=== PATIENT | male | born 1960 | race African-American/Black ===

== ENCOUNTER 2019-09-22 13:55 | Inpatient (IN) ==
[2019-09-22 14:27] LABS: Bilirubin,Urine Small (Negative); Blood,Urine Negative (Negative); Clarity,Urine Clear (Clear); Color,Urine Dark Yellow (Yellow); Glucose,Urine (UA) Normal (Normal); Ketones,Urine Trace mg/dL (Negative); Leukocyte Esterase,Urine Negative (Negative); Nitrite,Urine Negative (Negative); PH,Urine 6.5 pH Units (5.0-8.0); Protein,Urine Trace mg/dL (Neg-Trace); Specific Gravity,Urine 1.018 (1.010-1.025)
[2019-09-22 14:48] LABS: Amphetamine Screen,Urine Negative ng/mL (Cutoff=1000); Barbiturate Screen,Urine Negative ng/mL (Cutoff=200); Benzodiazepines Screen,Urine Negative ng/mL (Cutoff=200); Cannabinoid Screen,Urine Negative ng/mL (Cutoff = 50); Cocaine Screen,Urine Negative ng/mL (Cutoff= 300); Opiate Screen,Urine Negative ng/mL (Cutoff=300); Phencyclidine Screen,Urine Negative ng/mL (Cutoff=25)
[2019-09-22 14:50] LABS: Basophils % 0.1 %; Eosinophils % 0.3 %; Hemoglobin 13.7 g/dL (12.9-16.9); Immature Granulocytes % 0.7 % (0-4); Lymphocytes # 0.8 K/mcL (0.6-4.6); Lymphocytes % 5.6 %; Mean Corpuscular HGB Conc 32.6 g/dL (31.6-35.5); Mean Corpuscular Hemoglobin 30.6 pg (28.0-33.3); Mean Corpuscular Volume 93.8 fL (83.0-100.0); Mean Platelet Volume 10.6 fL (9.4-12.4); Monocytes # 1.6 K/mcL (0.0-1.3); Monocytes % 10.7 %; Neutrophils # 12.1 K/mcL (1.6-8.9); Nucleated Red Blood Cells 0.1 /100 WBC (0); Platelet Count 157 K/mcL (140-400); Red Blood Count 4.48 M/mcL (4.19-5.50); Red Cell Distribution Width 13.1 % (11.5-14.5); Segmented Neutrophils % 82.6 %; White Blood Count 14.6 K/mcL (4.3-11.1)
[2019-09-22 15:04] LABS: INR 1.5; Prothrombin Time 17.5 Seconds (9.4-12.1)
[2019-09-22 15:06] LABS: Activated Partial Thrombo Time 33.8 Seconds (26.0-36.0)
[2019-09-22 15:13] LABS: Alanine Aminotransferase 58 Units/L (7-52); Albumin 3.4 g/dL (3.5-5.7); Albumin/Globulin Ratio 0.7 (1.1-2.2); Alkaline Phosphatase 68 Units/L (34-104); Aspartate Amino Transferase 59 Units/L (13-39); BUN/Creatinine Ratio 13 (6-26); Bilirubin,Direct 0.2 mg/dL (0.0-0.2); Bilirubin,Indirect 0.3 mg/dL (0.0-1.0); Bilirubin,Total 0.5 mg/dL (0.3-1.0); Blood Urea Nitrogen 18 mg/dL (6-20); Calcium 9.3 mg/dL (8.6-10.3); Carbon Dioxide 30 mEq/L (23-29); Chloride 111 mEq/L (98-107); Globulin 4.6 g/dL (2.4-3.5); Glucose 125 mg/dL (70-105); Magnesium 2.1 mg/dL (1.6-2.6); Osmolality,Calculated 315 (280-300); Platelet Estimate Slight Decrease (Normal); Sodium 151 mEq/L (136-145); eGFR For African Americans > 60 (> 60); eGFR For Non-African Americans 50 (> 60)
[2019-09-22 15:15] LABS: Troponin I < 0.03 ng/mL (< 0.04)
[2019-09-22] MEDS ORDERED: 0.9 % Sodium Chloride 1,000 ML IVC ONE (15:43)
[2019-09-22 17:11] LABS: ABG Base Excess 4 mEq/L (-2 to 3); ABG HCO3 30 mEq/L (21-27); ABG Oxygen Saturation 87 % (95-98); ABG PCO2 50 mmHg (35-45); ABG PH 7.39 pH Units (7.32-7.45); ABG PO2 55 mmHg (85-104); ABG TCO2 32 mEq/L (20-26)
[2019-09-22] MEDS ORDERED: *HR* Metoprolol 5 MG/5 ML VIAL IVP PRN (17:37)
[2019-09-22] MEDS ORDERED: Naloxone 0.4 MG/ML INJ IVP PRN (17:54)
[2019-09-22] MEDS: Potassium Chloride 20 MEQ, Lidocaine 1% 2 ML in 0.9 % Sodium Chloride 250 ML IVPB ONE ×2 (20:45→21:48)
[2019-09-22] MEDS: *HR* Heparin 5,000 UNIT/ML VIAL SQ SCH (20:53)
[2019-09-22 21:33] LABS: BUN/Creatinine Ratio 14 (6-26); Blood Urea Nitrogen 17 mg/dL (6-20); Calcium 8.8 mg/dL (8.6-10.3); Carbon Dioxide 28 mEq/L (23-29); Chloride 114 mEq/L (98-107); Glucose 102 mg/dL (70-105); Osmolality,Calculated 318 (280-300); Potassium 3.5 mEq/L (3.5-5.1); Sodium 153 mEq/L (136-145); eGFR For African Americans > 60 (> 60); eGFR For Non-African Americans > 60 (> 60)
[2019-09-22] MEDS: Valproic Acid INJ 500 MG in 0.9 % Sodium Chloride 100 ML IVPB SCH (21:52)
[2019-09-23 01:15] LABS: Basophils % 0.2 %; Eosinophils # 0.1 K/mcL (0.0-0.6); Eosinophils % 0.8 %; Hematocrit 39.2 % (37.5-50.1); Hemoglobin 12.9 g/dL (12.9-16.9); Immature Granulocytes % 0.9 % (0-4); Lymphocytes % 8.7 %; Mean Corpuscular HGB Conc 32.9 g/dL (31.6-35.5); Mean Corpuscular Hemoglobin 30.6 pg (28.0-33.3); Mean Corpuscular Volume 93.1 fL (83.0-100.0); Mean Platelet Volume 10.5 fL (9.4-12.4); Monocytes # 1.2 K/mcL (0.0-1.3); Monocytes % 10.5 %; Neutrophils # 9.1 K/mcL (1.6-8.9); Platelet Count 157 K/mcL (140-400); Red Blood Count 4.21 M/mcL (4.19-5.50); Red Cell Distribution Width 13.1 % (11.5-14.5); Segmented Neutrophils % 78.9 %; White Blood Count 11.5 K/mcL (4.3-11.1)
[2019-09-23 01:34] LABS: BUN/Creatinine Ratio 14 (6-26); Blood Urea Nitrogen 15 mg/dL (6-20); Calcium 8.6 mg/dL (8.6-10.3); Carbon Dioxide 26 mEq/L (23-29); Chloride 117 mEq/L (98-107); Glucose 97 mg/dL (70-105); Osmolality,Calculated 311 (280-300); Potassium 3.2 mEq/L (3.5-5.1); Sodium 150 mEq/L (136-145); eGFR For African Americans > 60 (> 60); eGFR For Non-African Americans > 60 (> 60)
[2019-09-23] MEDS: D5% in Water 1,000 ML IVC SCH ×3 (01:34→22:29)
[2019-09-23 02:00] LABS: Platelet Estimate Normal (Normal)
[2019-09-23 02:41] LABS: Adenovirus Not Detected (Not Detect); Bordetella Pertussis Not Detected (Not Detect); Chlamydophila pneumoniae Not Detected (Not Detect); Coronavirus 229E Not Detected (Not Detect); Coronavirus HKU1 Not Detected (Not Detect); Coronavirus NL63 Not Detected (Not Detect); Coronavirus OC43 Not Detected (Not Detect); Human Metapneumovirus Not Detected (Not Detect); Human Rhinovirus/Enterovirus Not Detected (Not Detect); Influenza A Subtype 2009 H1 Not Detected (Not Detect); Influenza A Untypeable Not Detected (Not Detect); Influenza B Not Detected (Not Detect); Mycoplasma pneumoniae Not Detected (Not Detect); Parainfluenza Virus 1 Not Detected (Not Detect); Parainfluenza Virus 2 Not Detected (Not Detect); Parainfluenza Virus 3 Not Detected (Not Detect); Parainfluenza Virus 4 Not Detected (Not Detect); Respiratory Syncytial Virus Not Detected (Not Detect)
[2019-09-23] MEDS ORDERED: Potassium Chloride 20 MEQ, Lidocaine 1% 2 ML in 0.9 % Sodium Chloride 250 ML IVPB ONE (06:40)
[2019-09-23] MEDS: *HR* Heparin 5,000 UNIT/ML VIAL SQ SCH ×3 (06:43→22:23)
[2019-09-23] MEDS: Valproic Acid INJ 500 MG in 0.9 % Sodium Chloride 100 ML IVPB SCH ×2 (06:43→17:53)
[2019-09-23 09:27] LABS: BUN/Creatinine Ratio 13 (6-26); Blood Urea Nitrogen 13 mg/dL (6-20); Calcium 8.7 mg/dL (8.6-10.3); Carbon Dioxide 28 mEq/L (23-29); Chloride 115 mEq/L (98-107); Glucose 111 mg/dL (70-105); Osmolality,Calculated 311 (280-300); Potassium 3.1 mEq/L (3.5-5.1); Sodium 150 mEq/L (136-145); eGFR For African Americans > 60 (> 60); eGFR For Non-African Americans > 60 (> 60)
[2019-09-23 09:49] LABS: Enterococcus by PCR Not Detected (Not Detect); Staphylococcus aureus by PCR DETECTED (Not Detect); mecA Methicillin-Resist Gene Not Detected (Not Detect)
[2019-09-23 09:50] LABS: Acinetobacter baumannii by PCR Not Detected (Not Detect); Candida albicans by PCR Not Detected (Not Detect); Candida glabrata by PCR Not Detected (Not Detect); Candida krusei by PCR Not Detected (Not Detect); Candida parapsilosis by PCR Not Detected (Not Detect); Candida tropicalis by PCR Not Detected (Not Detect); Enterobacter cloacae Cmplx PCR Not Detected (Not Detect); Enterobacteriaceae by PCR Not Detected (Not Detect); Escherichia coli by PCR Not Detected (Not Detect); Klebsiella oxytoca by PCR Not Detected (Not Detect); Klebsiella pneumoniae by PCR Not Detected (Not Detect); Proteus by PCR Not Detected (Not Detect); Pseudomonas aeruginosa by PCR Not Detected (Not Detect); Serratia marcescens by PCR Not Detected (Not Detect); Streptococcus agalactiae(B)PCR Not Detected (Not Detect); Streptococcus by PCR Not Detected (Not Detect); Streptococcus pneumoniae PCR Not Detected (Not Detect); Streptococcus pyogenes (A) PCR Not Detected (Not Detect)
[2019-09-23] MEDS: *HR* LORazepam 2 MG/ML VIAL IVP PRN ×2 (14:40→23:07)
[2019-09-23 16:29] LABS: BUN/Creatinine Ratio 14 (6-26); Blood Urea Nitrogen 14 mg/dL (6-20); Calcium 8.4 mg/dL (8.6-10.3); Carbon Dioxide 25 mEq/L (23-29); Chloride 117 mEq/L (98-107); Glucose 105 mg/dL (70-105); Osmolality,Calculated 309 (280-300); Potassium 2.9 mEq/L (3.5-5.1); Sodium 149 mEq/L (136-145); eGFR For African Americans > 60 (> 60); eGFR For Non-African Americans > 60 (> 60)
[2019-09-23] MEDS ORDERED: Potassium Chloride 40 MEQ, Lidocaine 1% 2 ML in 0.9 % Sodium Chloride 500 ML IVPB ONE (16:42)
[2019-09-23] MEDS: Latanoprost 2.5 ML BOTTLE BOTH EYES SCH (22:23)
[2019-09-23] MEDS: Dorzolamide/Timolol OPTH 10 ML BOTTLE BOTH EYES SCH (22:23)
[2019-09-24 01:36] LABS: Basophils % 0.4 %; Eosinophils # 0.2 K/mcL (0.0-0.6); Eosinophils % 2.3 %; Hematocrit 39.6 % (37.5-50.1); Immature Granulocytes % 0.9 % (0-4); Lymphocytes # 0.7 K/mcL (0.6-4.6); Mean Corpuscular HGB Conc 32.8 g/dL (31.6-35.5); Mean Corpuscular Hemoglobin 30.5 pg (28.0-33.3); Mean Platelet Volume 10.6 fL (9.4-12.4); Monocytes # 0.9 K/mcL (0.0-1.3); Monocytes % 12.7 %; Neutrophils # 5.4 K/mcL (1.6-8.9); Nucleated Red Blood Cells 0.3 /100 WBC (0); Platelet Count 166 K/mcL (140-400); Red Blood Count 4.26 M/mcL (4.19-5.50); Red Cell Distribution Width 13.2 % (11.5-14.5); Segmented Neutrophils % 73.7 %; White Blood Count 7.4 K/mcL (4.3-11.1)
[2019-09-24] MEDS: *HR* LORazepam 2 MG/ML VIAL IVP PRN ×3 (04:55→20:36)
[2019-09-24] MEDS: Valproic Acid INJ 500 MG in 0.9 % Sodium Chloride 100 ML IVPB SCH (05:10)
[2019-09-24] MEDS: *HR* Heparin 5,000 UNIT/ML VIAL SQ SCH ×3 (06:01→20:35)
[2019-09-24 08:58] LABS: BUN/Creatinine Ratio 12 (6-26); Blood Urea Nitrogen 12 mg/dL (6-20); Calcium 8.6 mg/dL (8.6-10.3); Carbon Dioxide 25 mEq/L (23-29); Chloride 117 mEq/L (98-107); Glucose 92 mg/dL (70-105); Osmolality,Calculated 311 (280-300); Potassium 3.1 mEq/L (3.5-5.1); Sodium 151 mEq/L (136-145); eGFR For African Americans > 60 (> 60); eGFR For Non-African Americans > 60 (> 60)
[2019-09-24] MEDS: Dorzolamide/Timolol OPTH 10 ML BOTTLE BOTH EYES SCH ×2 (09:15→20:19)
[2019-09-24] MEDS ORDERED: Potassium Chloride 40 MEQ, Lidocaine 1% 2 ML in 0.9 % Sodium Chloride 500 ML IVPB ONE (09:57)
[2019-09-24 10:20] LABS: Magnesium 2.1 mg/dL (1.6-2.6)
[2019-09-24] MEDS ORDERED: *HR* LORazepam 2 MG/ML VIAL IVP ONE (13:18)
[2019-09-24 14:03] LABS: Albumin 2.9 g/dL (3.5-5.7); Albumin/Globulin Ratio 0.7 (1.1-2.2); Bilirubin,Direct 0.3 mg/dL (0.0-0.2); Bilirubin,Indirect 0.2 mg/dL (0.0-1.0); Bilirubin,Total 0.5 mg/dL (0.3-1.0); Globulin 4.2 g/dL (2.4-3.5); Total Protein 7.1 g/dL (6.4-8.9)
[2019-09-24] MEDS ORDERED: D5% in Water 1,000 ML IVC SCH (14:45)
[2019-09-24] MEDS: D5% in Water 1,000 ML IVC SCH ×3 (17:40→22:00)
[2019-09-24 17:52] LABS: BUN/Creatinine Ratio 12 (6-26); Blood Urea Nitrogen 12 mg/dL (6-20); Calcium 8.4 mg/dL (8.6-10.3); Carbon Dioxide 24 mEq/L (23-29); Chloride 120 mEq/L (98-107); Glucose 84 mg/dL (70-105); Osmolality,Calculated 311 (280-300); Potassium 3.4 mEq/L (3.5-5.1); Sodium 151 mEq/L (136-145); eGFR For African Americans > 60 (> 60); eGFR For Non-African Americans > 60 (> 60)
[2019-09-24 18:25] LABS: Valproate Free 10 ug/mL (7-23); Valproate Total 39 ug/mL (50-125)
[2019-09-24] MEDS: D5 IVPB SCH (20:21)
[2019-09-24] MEDS: WATER IVPB SCH (20:21)
[2019-09-24] MEDS: VALPROIC ACID IVPB SCH (20:21)
[2019-09-24] MEDS: Latanoprost 2.5 ML BOTTLE BOTH EYES SCH (20:25)
[2019-09-24] MEDS: Lactulose Oral Soln 20 GM/30 ML UDC PO SCH (20:35)
[2019-09-25] MEDS ORDERED: Vancomycin 1,500 MG in D5% in Water 250 ML IVPB SCH (00:01)
[2019-09-25] MEDS ORDERED: Vancomycin 1,250 MG in D5% in Water 250 ML IVPB SCH (01:00)
[2019-09-25] MEDS: *HR* LORazepam 2 MG/ML VIAL IVP PRN ×2 (03:14→18:29)
[2019-09-25] MEDS: D5% in Water 1,000 ML IVC SCH ×2 (04:17→18:22)
[2019-09-25] MEDS: VALPROIC ACID IVPB SCH ×3 (06:08→19:56)
[2019-09-25] MEDS: D5 IVPB SCH ×3 (06:08→19:56)
[2019-09-25] MEDS: WATER IVPB SCH ×3 (06:08→19:56)
[2019-09-25] MEDS: *HR* Heparin 5,000 UNIT/ML VIAL SQ SCH ×3 (06:11→21:52)
[2019-09-25] MEDS ORDERED: Aminoglycoside Consult 1 EACH MC ONE (07:51)
[2019-09-25 07:57] LABS: BUN/Creatinine Ratio 12 (6-26); Blood Urea Nitrogen 10 mg/dL (6-20); Calcium 8.4 mg/dL (8.6-10.3); Carbon Dioxide 21 mEq/L (23-29); Chloride 113 mEq/L (98-107); Glucose 87 mg/dL (70-105); Osmolality,Calculated 300 (280-300); Potassium 3.6 mEq/L (3.5-5.1); Sodium 146 mEq/L (136-145); eGFR For African Americans > 60 (> 60); eGFR For Non-African Americans > 60 (> 60)
[2019-09-25] MEDS: Dorzolamide/Timolol OPTH 10 ML BOTTLE BOTH EYES SCH ×2 (09:23→21:50)
[2019-09-25] MEDS: Lactulose Oral Soln 20 GM/30 ML UDC PO SCH ×2 (09:24→21:52)
[2019-09-25 11:07] LABS: ABG Base Excess -1 mEq/L (-2 to 3); ABG HCO3 23 mEq/L (21-27); ABG Oxygen Saturation 96 % (95-98); ABG PCO2 35 mmHg (35-45); ABG PH 7.42 pH Units (7.32-7.45); ABG PO2 77 mmHg (85-104); ABG TCO2 24 mEq/L (20-26)
[2019-09-25 13:28] LABS: Valproate % Free 26 % (5-18)
[2019-09-25] MEDS: Nafcillin 2,000 MG in D5% in Water (Mini-Bag+) 100 ML IVPB SCH (15:01)
[2019-09-25 18:33] LABS: Hepatitis C Virus Antibody Nonreactive (Nonreactive)
[2019-09-25 18:34] LABS: Hepatitis B Core IgM Nonreactive (Nonreactive)
[2019-09-25 18:35] LABS: Hepatitis A Antibody IgM Nonreactive (Nonreactive)
[2019-09-25] MEDS ORDERED: Nafcillin 2,000 MG in D5% in Water (Mini-Bag+) 100 ML IVPB SCH (19:30)
[2019-09-25] MEDS ORDERED: Haloperidol Lactate 5 MG/ML VIAL IVP ONE (19:55)
[2019-09-25] MEDS: Nafcillin 2,000 MG in D5% in Water 100 ML IVPB SCH (21:46)
[2019-09-25] MEDS: Latanoprost 2.5 ML BOTTLE BOTH EYES SCH (21:50)
[2019-09-25 22:41] LABS: Hepatitis B Surface Antigen Reactive (Nonreactive)
[2019-09-26] MEDS: Nafcillin 2,000 MG in D5% in Water 100 ML IVPB SCH ×4 (00:55→20:42)
[2019-09-26 04:44] LABS: Hematocrit 39.8 % (37.5-50.1); Hemoglobin 12.8 g/dL (12.9-16.9); Mean Corpuscular HGB Conc 32.2 g/dL (31.6-35.5); Mean Corpuscular Hemoglobin 29.9 pg (28.0-33.3); Mean Platelet Volume 9.7 fL (9.4-12.4); Nucleated Red Blood Cells 1.2 /100 WBC (0); Platelet Count 157 K/mcL (140-400); Red Blood Count 4.28 M/mcL (4.19-5.50); White Blood Count 4.2 K/mcL (4.3-11.1)
[2019-09-26 05:04] LABS: Albumin 2.7 g/dL (3.5-5.7); Albumin/Globulin Ratio 0.7 (1.1-2.2); Bilirubin,Direct 0.4 mg/dL (0.0-0.2); Bilirubin,Indirect 0.4 mg/dL (0.0-1.0); Bilirubin,Total 0.8 mg/dL (0.3-1.0); Globulin 4.1 g/dL (2.4-3.5); Total Protein 6.8 g/dL (6.4-8.9)
[2019-09-26 05:05] LABS: BUN/Creatinine Ratio 7 (6-26); Blood Urea Nitrogen 8 mg/dL (6-20); Carbon Dioxide 23 mEq/L (23-29); Chloride 110 mEq/L (98-107); Glucose 110 mg/dL (70-105); Osmolality,Calculated 293 (280-300); Sodium 142 mEq/L (136-145); eGFR For African Americans > 60 (> 60); eGFR For Non-African Americans > 60 (> 60)
[2019-09-26] MEDS: D5% in Water 1,000 ML IVC SCH ×2 (05:52→20:42)
[2019-09-26] MEDS: *HR* Heparin 5,000 UNIT/ML VIAL SQ SCH ×3 (05:52→20:29)
[2019-09-26 05:55] LABS: Lymphocytes # 1.4 K/mcL (0.6-4.6); Monocytes # 0.3 K/mcL (0.0-1.3); Neutrophils # 2.4 K/mcL (1.6-8.9)
[2019-09-26] MEDS: WATER IVPB SCH ×2 (05:56→17:35)
[2019-09-26] MEDS: VALPROIC ACID IVPB SCH ×2 (05:56→17:35)
[2019-09-26] MEDS: D5 IVPB SCH ×2 (05:56→17:35)
[2019-09-26] MEDS ORDERED: Potassium Chloride 40 MEQ, Lidocaine 1% 2 ML in 0.9 % Sodium Chloride 500 ML IVPB ONE (08:08)
[2019-09-26] MEDS ORDERED: Potassium Chloride 40 MEQ in D5% in Water 1,000 ML IVC SCH (09:30)
[2019-09-26] MEDS: Lactulose Oral Soln 20 GM/30 ML UDC PO SCH ×3 (09:32→19:43)
[2019-09-26] MEDS: Dorzolamide/Timolol OPTH 10 ML BOTTLE BOTH EYES SCH ×2 (09:52→20:24)
[2019-09-26] MEDS ORDERED: Perflutren Lipid Microsphere 1.3 ML in 0.9 % Sodium Chloride 8.7 ML IVP ONE (13:59)
[2019-09-26] MEDS ORDERED: Perflutren Lipid Microsphere 2 ML VIAL ONE (14:01)
[2019-09-26] MEDS: *HR* LORazepam 2 MG/ML VIAL IVP PRN ×2 (16:11→20:21)
[2019-09-26] MEDS: Potassium Chloride 40 MEQ in D5% in Water 1,000 ML IVC SCH (16:16)
[2019-09-26] MEDS: Nafcillin 2,000 MG in D5% in Water (Mini-Bag+) 100 ML IVPB SCH ×4 (19:42→23:22)
[2019-09-26] MEDS: Latanoprost 2.5 ML BOTTLE BOTH EYES SCH (20:24)
[2019-09-26] MEDS ORDERED: *HR* LORazepam 2 MG/ML VIAL IVP ONE (21:58)
[2019-09-27] MEDS: Potassium Chloride 40 MEQ in D5% in Water 1,000 ML IVC SCH ×3 (01:24→20:10)
[2019-09-27 01:46] LABS: Basophils % 0.9 %; Eosinophils # 0.2 K/mcL (0.0-0.6); Eosinophils % 3.7 %; Immature Granulocytes % 6.7 % (0-4); Lymphocytes % 22.4 %; Mean Corpuscular HGB Conc 33.3 g/dL (31.6-35.5); Mean Corpuscular Hemoglobin 30.1 pg (28.0-33.3); Mean Corpuscular Volume 90.3 fL (83.0-100.0); Mean Platelet Volume 10.1 fL (9.4-12.4); Monocytes # 0.7 K/mcL (0.0-1.3); Monocytes % 15.4 %; Neutrophils # 2.3 K/mcL (1.6-8.9); Nucleated Red Blood Cells 0.9 /100 WBC (0); Platelet Count 180 K/mcL (140-400); Red Blood Count 4.32 M/mcL (4.19-5.50); Red Cell Distribution Width 12.9 % (11.5-14.5); Segmented Neutrophils % 50.9 %; White Blood Count 4.6 K/mcL (4.3-11.1)
[2019-09-27 01:53] LABS: BUN/Creatinine Ratio 5 (6-26); Blood Urea Nitrogen 5 mg/dL (6-20); Carbon Dioxide 22 mEq/L (23-29); Chloride 111 mEq/L (98-107); Glucose 85 mg/dL (70-105); Osmolality,Calculated 287 (280-300); Potassium 3.8 mEq/L (3.5-5.1); Sodium 140 mEq/L (136-145); eGFR For African Americans > 60 (> 60); eGFR For Non-African Americans > 60 (> 60)
[2019-09-27 02:53] LABS: Platelet Estimate Normal (Normal)
[2019-09-27] MEDS: Nafcillin 2,000 MG in D5% in Water (Mini-Bag+) 100 ML IVPB SCH ×6 (04:01→23:53)
[2019-09-27] MEDS: D5 IVPB SCH (05:23)
[2019-09-27] MEDS: VALPROIC ACID IVPB SCH (05:23)
[2019-09-27] MEDS: WATER IVPB SCH (05:23)
[2019-09-27] MEDS: *HR* Heparin 5,000 UNIT/ML VIAL SQ SCH ×3 (05:23→19:56)
[2019-09-27] MEDS: *HR* LORazepam 2 MG/ML VIAL IVP PRN (07:00)
[2019-09-27] MEDS ORDERED: *HR* LORazepam 2 MG/ML VIAL IVP ONE (08:45)
[2019-09-27] MEDS ORDERED: hydroCHLOROthiazide 25 MG TABLET PO SCH (09:00)
[2019-09-27] MEDS ORDERED: Haloperidol Lactate 5 MG/ML VIAL IVP ONE (09:15)
[2019-09-27] MEDS: Lactulose Oral Soln 20 GM/30 ML UDC PO SCH ×3 (09:28→19:56)
[2019-09-27] MEDS: Dorzolamide/Timolol OPTH 10 ML BOTTLE BOTH EYES SCH ×2 (09:28→19:58)
[2019-09-27] MEDS: Divalproex (12 HR) 250 MG TABLET PO SCH (19:56)
[2019-09-27] MEDS: *HR* LORazepam 1 MG TABLET PO SCH (19:56)
[2019-09-27] MEDS: Latanoprost 2.5 ML BOTTLE BOTH EYES SCH (19:57)
[2019-09-28] MEDS: Nafcillin 2,000 MG in D5% in Water (Mini-Bag+) 100 ML IVPB SCH ×5 (04:27→21:08)
[2019-09-28] MEDS: chlorproMAZINE 25 MG TABLET PO SCH ×3 (04:28→14:38)
[2019-09-28 05:45] LABS: Hematocrit 37.1 % (37.5-50.1); Hemoglobin 12.1 g/dL (12.9-16.9); Mean Corpuscular HGB Conc 32.6 g/dL (31.6-35.5); Mean Corpuscular Volume 91.8 fL (83.0-100.0); Mean Platelet Volume 9.6 fL (9.4-12.4); Monocytes # 0.8 K/mcL (0.0-1.3); Nucleated Red Blood Cells 0.7 /100 WBC (0); Platelet Count 156 K/mcL (140-400); Red Blood Count 4.04 M/mcL (4.19-5.50); Red Cell Distribution Width 13.1 % (11.5-14.5); White Blood Count 4.3 K/mcL (4.3-11.1)
[2019-09-28 06:07] LABS: Alanine Aminotransferase 45 Units/L (7-52); Albumin 2.9 g/dL (3.5-5.7); Albumin/Globulin Ratio 0.7 (1.1-2.2); Alkaline Phosphatase 55 Units/L (34-104); Aspartate Amino Transferase 41 Units/L (13-39); BUN/Creatinine Ratio 3 (6-26); Bilirubin,Total 0.5 mg/dL (0.3-1.0); Blood Urea Nitrogen 3 mg/dL (6-20); Calcium 8.2 mg/dL (8.6-10.3); Carbon Dioxide 24 mEq/L (23-29); Chloride 110 mEq/L (98-107); Globulin 4.1 g/dL (2.4-3.5); Glucose 127 mg/dL (70-105); Osmolality,Calculated 290 (280-300); Potassium 3.9 mEq/L (3.5-5.1); Sodium 141 mEq/L (136-145); eGFR For African Americans > 60 (> 60); eGFR For Non-African Americans > 60 (> 60)
[2019-09-28 06:09] LABS: Eosinophils # 0.3 K/mcL (0.0-0.6); Lymphocytes # 1.6 K/mcL (0.6-4.6); Neutrophils # 1.6 K/mcL (1.6-8.9)
[2019-09-28 06:10] LABS: Reactive Lymphocytes Present (Not Present)
[2019-09-28 06:11] LABS: Platelet Estimate Normal (Normal)
[2019-09-28] MEDS: *HR* Heparin 5,000 UNIT/ML VIAL SQ SCH ×3 (07:00→21:06)
[2019-09-28] MEDS ORDERED: Bisacodyl 10 MG RECTAL SUPPOSITORY RC PRN (07:49)
[2019-09-28] MEDS: Cholecalciferol (D-3) 1,000 UNIT (25MCG) TABLET PO SCH (11:18)
[2019-09-28] MEDS: Multivit/Ca/Min/Fe/FA 1 TAB TABLET PO SCH (11:18)
[2019-09-28] MEDS: Topiramate 100 MG TABLET PO SCH ×2 (11:18→21:07)
[2019-09-28] MEDS: Lactulose Oral Soln 20 GM/30 ML UDC PO SCH ×3 (11:19→21:06)
[2019-09-28] MEDS: Potassium Chloride 40 MEQ in D5% in Water 1,000 ML IVC SCH (11:43)
[2019-09-28] MEDS: Artificial Tears SOLN 15 ML BOTTLE BOTH EYES SCH ×3 (11:57→21:10)
[2019-09-28] MEDS: Dorzolamide/Timolol OPTH 10 ML BOTTLE BOTH EYES SCH ×2 (11:57→21:10)
[2019-09-28 15:40] LABS: Hepatitis Be Antigen NEGATIVE (Negative)
[2019-09-28] MEDS: *HR* LORazepam 2 MG/ML VIAL IVP PRN ×2 (16:30→22:38)
[2019-09-28] MEDS: Melatonin 3 MG TABLET PO SCH (21:06)
[2019-09-28] MEDS: *HR* LORazepam 1 MG TABLET PO SCH (21:06)
[2019-09-28] MEDS: OXcarbazepine 150 MG TABLET PO SCH (21:07)
[2019-09-28] MEDS: Divalproex (12 HR) 250 MG TABLET PO SCH (21:07)
[2019-09-28] MEDS: Latanoprost 2.5 ML BOTTLE BOTH EYES SCH (21:10)
[2019-09-29] MEDS: Nafcillin 2,000 MG in D5% in Water (Mini-Bag+) 100 ML IVPB SCH ×7 (01:34→23:43)
[2019-09-29] MEDS: Potassium Chloride 40 MEQ in D5% in Water 1,000 ML IVC SCH ×3 (01:54→16:38)
[2019-09-29] MEDS: *HR* Heparin 5,000 UNIT/ML VIAL SQ SCH ×3 (05:49→20:09)
[2019-09-29 07:20] LABS: Alanine Aminotransferase 38 Units/L (7-52); Albumin 2.8 g/dL (3.5-5.7); Albumin/Globulin Ratio 0.7 (1.1-2.2); Alkaline Phosphatase 51 Units/L (34-104); Aspartate Amino Transferase 34 Units/L (13-39); BUN/Creatinine Ratio 2 (6-26); Bilirubin,Total 0.4 mg/dL (0.3-1.0); Blood Urea Nitrogen 2 mg/dL (6-20); Calcium 8.2 mg/dL (8.6-10.3); Carbon Dioxide 24 mEq/L (23-29); Chloride 109 mEq/L (98-107); Globulin 3.9 g/dL (2.4-3.5); Glucose 111 mg/dL (70-105); Osmolality,Calculated 289 (280-300); Potassium 4.1 mEq/L (3.5-5.1); Sodium 141 mEq/L (136-145); Total Protein 6.7 g/dL (6.4-8.9); eGFR For African Americans > 60 (> 60); eGFR For Non-African Americans > 60 (> 60)
[2019-09-29] MEDS: Artificial Tears SOLN 15 ML BOTTLE BOTH EYES SCH ×3 (08:30→20:17)
[2019-09-29 08:47] LABS: Hepatitis Be Antibody POSITIVE (Negative)
[2019-09-29 08:59] LABS: Hepatitis B Core Ab Total POSITIVE (Negative)
[2019-09-29] MEDS: Topiramate 100 MG TABLET PO SCH ×2 (12:22→20:01)
[2019-09-29] MEDS: Lactulose Oral Soln 20 GM/30 ML UDC PO SCH ×3 (12:22→20:02)
[2019-09-29] MEDS: Cholecalciferol (D-3) 1,000 UNIT (25MCG) TABLET PO SCH (12:24)
[2019-09-29] MEDS: chlorproMAZINE 25 MG TABLET PO SCH ×2 (12:27→16:42)
[2019-09-29] MEDS: Dorzolamide/Timolol OPTH 10 ML BOTTLE BOTH EYES SCH ×2 (12:28→20:11)
[2019-09-29 14:06] LABS: HBV Quant by PCR <10 DETECTED IU/mL
[2019-09-29] MEDS: Multivit/Ca/Min/Fe/FA 1 TAB TABLET PO SCH (16:39)
[2019-09-29] MEDS: Divalproex (12 HR) 250 MG TABLET PO SCH (20:01)
[2019-09-29] MEDS: OXcarbazepine 150 MG TABLET PO SCH (20:01)
[2019-09-29] MEDS: *HR* LORazepam 1 MG TABLET PO SCH (20:01)
[2019-09-29] MEDS: Melatonin 3 MG TABLET PO SCH (20:02)
[2019-09-29] MEDS: Latanoprost 2.5 ML BOTTLE BOTH EYES SCH (20:10)
[2019-09-30 01:36] LABS: Hematocrit 40.6 % (37.5-50.1); Hemoglobin 13.2 g/dL (12.9-16.9); Mean Corpuscular HGB Conc 32.5 g/dL (31.6-35.5); Mean Corpuscular Hemoglobin 30.1 pg (28.0-33.3); Mean Corpuscular Volume 92.7 fL (83.0-100.0); Mean Platelet Volume 9.9 fL (9.4-12.4); Platelet Count 180 K/mcL (140-400); Red Blood Count 4.38 M/mcL (4.19-5.50); Red Cell Distribution Width 13.5 % (11.5-14.5); White Blood Count 4.1 K/mcL (4.3-11.1)
[2019-09-30 01:56] LABS: BUN/Creatinine Ratio 2 (6-26); Blood Urea Nitrogen 2 mg/dL (6-20); Calcium 8.5 mg/dL (8.6-10.3); Carbon Dioxide 20 mEq/L (23-29); Chloride 109 mEq/L (98-107); Glucose 103 mg/dL (70-105); Osmolality,Calculated 282 (280-300); Potassium 4.5 mEq/L (3.5-5.1); Sodium 138 mEq/L (136-145); eGFR For African Americans > 60 (> 60); eGFR For Non-African Americans > 60 (> 60)
[2019-09-30] MEDS: Potassium Chloride 40 MEQ in D5% in Water 1,000 ML IVC SCH ×3 (03:08→17:21)
[2019-09-30] MEDS: Nafcillin 2,000 MG in D5% in Water (Mini-Bag+) 100 ML IVPB SCH ×5 (04:26→22:32)
[2019-09-30] MEDS: *HR* Heparin 5,000 UNIT/ML VIAL SQ SCH ×3 (04:26→22:44)
[2019-09-30 08:37] LABS: HBV Quant Interpretation DETECTED (Not Detected); HBV Quant Log by PCR <1.00 log IU/mL
[2019-09-30] MEDS: Cholecalciferol (D-3) 1,000 UNIT (25MCG) TABLET PO SCH (09:07)
[2019-09-30] MEDS: Multivit/Ca/Min/Fe/FA 1 TAB TABLET PO SCH (09:07)
[2019-09-30] MEDS: chlorproMAZINE 25 MG TABLET PO SCH ×2 (09:09→17:26)
[2019-09-30] MEDS: Lactulose Oral Soln 20 GM/30 ML UDC PO SCH ×4 (09:15→22:45)
[2019-09-30] MEDS: Topiramate 100 MG TABLET PO SCH ×2 (09:15→22:43)
[2019-09-30] MEDS: Artificial Tears SOLN 15 ML BOTTLE BOTH EYES SCH ×3 (09:16→22:44)
[2019-09-30] MEDS: Dorzolamide/Timolol OPTH 10 ML BOTTLE BOTH EYES SCH ×2 (09:17→22:50)
[2019-09-30] MEDS ORDERED: Lidocaine -MPF 1% 5 ML AMPUL INFILT ONE (14:21)
[2019-09-30] MEDS ORDERED: Lactulose 200 GM, Sodium Chloride IRRigation 700 ML RC ONE (18:00)
[2019-09-30] MEDS: *HR* LORazepam 1 MG TABLET PO SCH (22:37)
[2019-09-30] MEDS: Melatonin 3 MG TABLET PO SCH (22:39)
[2019-09-30] MEDS: OXcarbazepine 150 MG TABLET PO SCH (22:42)
[2019-09-30] MEDS: Divalproex (12 HR) 250 MG TABLET PO SCH (22:45)
[2019-09-30] MEDS: Latanoprost 2.5 ML BOTTLE BOTH EYES SCH (22:49)
[2019-10-01] MEDS: Nafcillin 2,000 MG in D5% in Water (Mini-Bag+) 100 ML IVPB SCH ×6 (02:20→21:09)
[2019-10-01] MEDS: *HR* Heparin 5,000 UNIT/ML VIAL SQ SCH ×3 (05:58→21:10)
[2019-10-01] MEDS: Potassium Chloride 40 MEQ in D5% in Water 1,000 ML IVC SCH ×2 (05:59→18:03)
[2019-10-01 06:29] LABS: Basophils % 0.9 %; Eosinophils # 0.3 K/mcL (0.0-0.6); Eosinophils % 6.1 %; Hematocrit 37.6 % (37.5-50.1); Hemoglobin 12.7 g/dL (12.9-16.9); Lymphocytes # 1.2 K/mcL (0.6-4.6); Lymphocytes % 26.2 %; Mean Corpuscular HGB Conc 33.8 g/dL (31.6-35.5); Mean Corpuscular Hemoglobin 30.3 pg (28.0-33.3); Mean Corpuscular Volume 89.7 fL (83.0-100.0); Mean Platelet Volume 9.8 fL (9.4-12.4); Monocytes # 0.8 K/mcL (0.0-1.3); Monocytes % 17.2 %; Nucleated Red Blood Cells 0.7 /100 WBC (0); Platelet Count 187 K/mcL (140-400); Red Blood Count 4.19 M/mcL (4.19-5.50); Red Cell Distribution Width 13.2 % (11.5-14.5); Segmented Neutrophils % 44.6 %; White Blood Count 4.6 K/mcL (4.3-11.1)
[2019-10-01 06:51] LABS: Alanine Aminotransferase 27 Units/L (7-52); Albumin 2.7 g/dL (3.5-5.7); Albumin/Globulin Ratio 0.7 (1.1-2.2); Alkaline Phosphatase 50 Units/L (34-104); Aspartate Amino Transferase 22 Units/L (13-39); BUN/Creatinine Ratio 3 (6-26); Bilirubin,Total 0.4 mg/dL (0.3-1.0); Blood Urea Nitrogen 3 mg/dL (6-20); Calcium 8.6 mg/dL (8.6-10.3); Carbon Dioxide 24 mEq/L (23-29); Chloride 108 mEq/L (98-107); Globulin 4.1 g/dL (2.4-3.5); Glucose 88 mg/dL (70-105); Osmolality,Calculated 286 (280-300); Potassium 4.1 mEq/L (3.5-5.1); Sodium 140 mEq/L (136-145); Total Protein 6.8 g/dL (6.4-8.9); eGFR For African Americans > 60 (> 60); eGFR For Non-African Americans > 60 (> 60)
[2019-10-01] MEDS: Multivit/Ca/Min/Fe/FA 1 TAB TABLET PO SCH (10:21)
[2019-10-01] MEDS: Topiramate 100 MG TABLET PO SCH ×2 (10:21→20:04)
[2019-10-01] MEDS: Cholecalciferol (D-3) 1,000 UNIT (25MCG) TABLET PO SCH (10:21)
[2019-10-01] MEDS: Lactulose Oral Soln 20 GM/30 ML UDC PO SCH ×4 (10:22→20:09)
[2019-10-01] MEDS: Dorzolamide/Timolol OPTH 10 ML BOTTLE BOTH EYES SCH ×2 (10:24→20:17)
[2019-10-01] MEDS: chlorproMAZINE 25 MG TABLET PO SCH ×2 (10:24→15:28)
[2019-10-01] MEDS: Artificial Tears SOLN 15 ML BOTTLE BOTH EYES SCH ×3 (10:24→20:16)
[2019-10-01] MEDS: Mag Hydrox/Al Hydrox/Simeth 30 ML UDC PO PRN (15:25)
[2019-10-01] MEDS: levETIRAcetam 250 MG TABLET PO SCH (18:04)
[2019-10-01] MEDS: Melatonin 3 MG TABLET PO SCH (20:04)
[2019-10-01] MEDS: *HR* LORazepam 1 MG TABLET PO SCH (20:04)
[2019-10-01] MEDS: OXcarbazepine 150 MG TABLET PO SCH (20:04)
[2019-10-01] MEDS: Latanoprost 2.5 ML BOTTLE BOTH EYES SCH (20:17)
[2019-10-01] MEDS ORDERED: Divalproex (12 HR) 250 MG TABLET PO SCH (21:00)
[2019-10-02] MEDS: Nafcillin 2,000 MG in D5% in Water (Mini-Bag+) 100 ML IVPB SCH ×3 (02:03→10:05)
[2019-10-02] MEDS: Potassium Chloride 40 MEQ in D5% in Water 1,000 ML IVC SCH (05:54)
[2019-10-02] MEDS: *HR* Heparin 5,000 UNIT/ML VIAL SQ SCH (05:56)
[2019-10-02] MEDS: levETIRAcetam 250 MG TABLET PO SCH (05:58)
[2019-10-02 07:05] LABS: Basophils % 0.6 %; Eosinophils # 0.2 K/mcL (0.0-0.6); Hematocrit 40.1 % (37.5-50.1); Hemoglobin 13.4 g/dL (12.9-16.9); Immature Granulocytes % 2.2 % (0-4); Lymphocytes # 1.1 K/mcL (0.6-4.6); Lymphocytes % 24.2 %; Mean Corpuscular HGB Conc 33.4 g/dL (31.6-35.5); Mean Corpuscular Hemoglobin 30.5 pg (28.0-33.3); Mean Corpuscular Volume 91.1 fL (83.0-100.0); Mean Platelet Volume 9.4 fL (9.4-12.4); Monocytes # 0.9 K/mcL (0.0-1.3); Monocytes % 19.9 %; Neutrophils # 2.2 K/mcL (1.6-8.9); Platelet Count 176 K/mcL (140-400); Red Cell Distribution Width 13.2 % (11.5-14.5); Segmented Neutrophils % 48.1 %; White Blood Count 4.6 K/mcL (4.3-11.1)
[2019-10-02 07:55] VITALS: BP 127/74
[2019-10-02] MEDS: Cholecalciferol (D-3) 1,000 UNIT (25MCG) TABLET PO SCH (09:32)
[2019-10-02] MEDS: chlorproMAZINE 25 MG TABLET PO SCH (09:32)
[2019-10-02] MEDS: Multivit/Ca/Min/Fe/FA 1 TAB TABLET PO SCH (09:32)
[2019-10-02] MEDS: Topiramate 100 MG TABLET PO SCH (09:32)
[2019-10-02] MEDS: Lactulose Oral Soln 20 GM/30 ML UDC PO SCH (09:33)
[2019-10-02] MEDS: Dorzolamide/Timolol OPTH 10 ML BOTTLE BOTH EYES SCH (09:33)
[2019-10-02] MEDS: Mag Hydrox/Al Hydrox/Simeth 30 ML UDC PO PRN (09:33)
[2019-10-02] MEDS: Artificial Tears SOLN 15 ML BOTTLE BOTH EYES SCH (09:33)
== END 2019-10-02 12:30 | DRG 52 ==
LOC: EMEROOARM 13:55 → 3BNU 13:55
PROVIDERS: ADMIT Student in an Organized Health Care Education/Training Program; ATTEND Student in an Organized Health Care Education/Training Program

== ENCOUNTER 2020-12-01 23:17 | Inpatient (IN) ==
[2020-12-01] MEDS ORDERED: 0.9 % Sodium Chloride 1,000 ML IVC ONE (23:40)
[2020-12-02 00:22] LABS: Bilirubin,Urine Negative (Negative); Blood,Urine Negative (Negative); Clarity,Urine Clear (Clear); Color,Urine Yellow (Yellow); Glucose,Urine (UA) Normal (Normal); Hyaline Casts,Urine Moderate per lpf (None Seen); Ketones,Urine Negative (Negative); Leukocyte Esterase,Urine Negative (Negative); Mucus,Urine Few per lpf (None-Few); Nitrite,Urine Negative (Negative); Protein,Urine 30 mg/dL (Neg-Trace); RBC,Urine 0-3 per hpf (0-3); Specific Gravity,Urine 1.021 (1.010-1.025); Urobilinogen,Urine Normal (Normal); WBC,Urine 0-3 per hpf (0-3)
[2020-12-02 00:24] LABS: Basophils % 0.4 %; Eosinophils # 0.1 K/mcL (0.0-0.6); Eosinophils % 1.3 %; Hematocrit 45.2 % (37.5-50.1); Hemoglobin 14.4 g/dL (12.9-16.9); Immature Granulocytes % 1.1 % (0-4); Lymphocytes # 0.8 K/mcL (0.6-4.6); Lymphocytes % 10.1 %; Mean Corpuscular HGB Conc 31.9 g/dL (31.6-35.5); Mean Corpuscular Hemoglobin 31.9 pg (28.0-33.3); Mean Corpuscular Volume 100.2 fL (83.0-100.0); Mean Platelet Volume 12.3 fL (9.4-12.4); Monocytes % 12.6 %; Neutrophils # 5.9 K/mcL (1.6-8.9); Nucleated Red Blood Cells 2.5 /100 WBC (0); Platelet Count 108 K/mcL (140-400); Red Blood Count 4.51 M/mcL (4.19-5.50); Red Cell Distribution Width 14.4 % (11.5-14.5); Segmented Neutrophils % 74.5 %
[2020-12-02 00:30] LABS: Amphetamine Screen,Urine Negative ng/mL (Cutoff=1000); Barbiturate Screen,Urine Negative ng/mL (Cutoff=200); Benzodiazepines Screen,Urine Negative ng/mL (Cutoff=200); Cannabinoid Screen,Urine Negative ng/mL (Cutoff = 50); Cocaine Screen,Urine Negative ng/mL (Cutoff= 300); Opiate Screen,Urine Negative ng/mL (Cutoff=300); Phencyclidine Screen,Urine Negative ng/mL (Cutoff=25)
[2020-12-02 00:47] LABS: Alanine Aminotransferase 44 Units/L (7-52); Albumin 4.4 g/dL (3.5-5.7); Albumin/Globulin Ratio 1.1 (1.1-2.2); Alkaline Phosphatase 107 Units/L (34-104); Aspartate Amino Transferase 59 Units/L (13-39); BUN/Creatinine Ratio 11 (6-26); Bilirubin,Direct 0.3 mg/dL (0.0-0.2); Bilirubin,Indirect 0.9 mg/dL (0.0-1.0); Bilirubin,Total 1.2 mg/dL (0.3-1.0); Blood Urea Nitrogen 18 mg/dL (8-23); Calcium 12.1 mg/dL (8.6-10.3); Carbon Dioxide 26 mEq/L (23-29); Chloride 122 mEq/L (98-107); Ethanol < 10 mg/dL (Less than 10); Glucose 119 mg/dL (70-105); Osmolality,Calculated 333 (280-300); Potassium 3.4 mEq/L (3.5-5.1); Sodium 160 mEq/L (136-145); Total Protein 8.4 g/dL (6.4-8.9); Troponin I < 0.03 ng/mL (< 0.04); eGFR For African Americans 52 (> 60); eGFR For Non-African Americans 43 (> 60)
[2020-12-02] MEDS ORDERED: Ondansetron 4 MG/2 ML VIAL IVP PRN (03:32)
[2020-12-02] MEDS ORDERED: Naloxone 0.4 MG/ML INJ IVP PRN (03:32)
[2020-12-02 05:26] LABS: Hemoglobin 12.9 g/dL (12.9-16.9); Mean Corpuscular Volume 102.4 fL (83.0-100.0); Red Cell Distribution Width 14.6 % (11.5-14.5)
[2020-12-02 05:28] LABS: Basophils % 0.2 %; Eosinophils # 0.1 K/mcL (0.0-0.6); Eosinophils % 1.5 %; Hematocrit 42.5 % (37.5-50.1); INR 1.6; Immature Granulocytes % 0.6 % (0-4); Immature Platelets 4.8 % (1.1-6.1); Lymphocytes # 0.8 K/mcL (0.6-4.6); Mean Corpuscular HGB Conc 30.4 g/dL (31.6-35.5); Mean Corpuscular Hemoglobin 31.1 pg (28.0-33.3); Mean Platelet Volume 12.1 fL (9.4-12.4); Monocytes # 0.7 K/mcL (0.0-1.3); Monocytes % 12.5 %; Nucleated Red Blood Cells 1.3 /100 WBC (0); Prothrombin Time 18.1 Seconds (9.4-12.1); Red Blood Count 4.15 M/mcL (4.19-5.50); Segmented Neutrophils % 71.2 %; White Blood Count 5.4 K/mcL (4.3-11.1)
[2020-12-02 05:30] LABS: Neutrophils # 3.8 K/mcL (1.6-8.9); Platelet Count 85 K/mcL (140-400)
[2020-12-02 05:54] LABS: Alanine Aminotransferase 36 Units/L (7-52); Albumin 3.7 g/dL (3.5-5.7); Albumin/Globulin Ratio 1.1 (1.1-2.2); Alkaline Phosphatase 91 Units/L (34-104); Aspartate Amino Transferase 44 Units/L (13-39); BUN/Creatinine Ratio 13 (6-26); Bilirubin,Total 0.8 mg/dL (0.3-1.0); Blood Urea Nitrogen 17 mg/dL (8-23); Calcium 10.8 mg/dL (8.6-10.3); Carbon Dioxide 24 mEq/L (23-29); Chloride 125 mEq/L (98-107); Globulin 3.5 g/dL (2.4-3.5); Glucose 111 mg/dL (70-105); Magnesium 1.5 mg/dL (1.6-2.6); Osmolality,Calculated 332 (280-300); Phosphorous 3.3 mg/dL (2.7-4.5); Sodium 160 mEq/L (136-145); Total Protein 7.2 g/dL (6.4-8.9); eGFR For African Americans > 60 (> 60); eGFR For Non-African Americans 54 (> 60)
[2020-12-02] MEDS ORDERED: Potassium Chloride 20 MEQ in D5% in Water 1,000 ML IVC SCH ×2 (06:30→15:30)
[2020-12-02] MEDS ORDERED: Magnesium Sulfate 1 GM/102 ML PIGGYBACK IVPB ONE (06:35)
[2020-12-02 10:48] LABS: BUN/Creatinine Ratio 13 (6-26); Blood Urea Nitrogen 17 mg/dL (8-23); Calcium 10.6 mg/dL (8.6-10.3); Carbon Dioxide 30 mEq/L (23-29); Chloride 124 mEq/L (98-107); Glucose 120 mg/dL (70-105); Osmolality,Calculated 335 (280-300); Potassium 3.1 mEq/L (3.5-5.1); Sodium 161 mEq/L (136-145); eGFR For African Americans > 60 (> 60); eGFR For Non-African Americans 58 (> 60)
[2020-12-02] MEDS ORDERED: Dextrose Gel 15 GM/37.5 ML TUBE PO PRN ×2 (11:51)
[2020-12-02] MEDS ORDERED: D5% in Water 1,000 ML IVC PRN (11:51)
[2020-12-02] MEDS ORDERED: *HR* Dextrose 50 % in Water (Vial) 50 ML VIAL IVP PRN (11:51)
[2020-12-02] MEDS: Insulin LISPRO 300 UNITS/3 ML VIAL SUBQ SCH ×3 (12:11→23:59)
[2020-12-02] MEDS ORDERED: Lactulose 200 GM, Sodium Chloride IRRigation 700 ML RC ONE (13:18)
[2020-12-02] MEDS: levETIRAcetam 250 MG in 0.9 % Sodium Chloride 100 ML IVPB SCH ×2 (15:02→20:44)
[2020-12-02 17:09] LABS: VBG HCO3 29 mEq/L (21-27); VBG PCO2 50 mmHg (41-51); VBG PH 7.36 pH Units (7.32-7.42); VBG PO2 111 mmHg (25-50)
[2020-12-02] MEDS ORDERED: Lactulose Oral Soln 20 GM/30 ML UDC PO SCH (21:00)
[2020-12-03] MEDS ORDERED: *HR* LORazepam 2 MG/ML VIAL IVP ONE (01:16)
[2020-12-03] MEDS ORDERED: Potassium Chloride 20 MEQ in D5% in Water 1,000 ML IVC SCH ×4 (01:30→14:20)
[2020-12-03 04:51] LABS: Hemoglobin 12.3 g/dL (12.9-16.9); Red Cell Distribution Width 14.6 % (11.5-14.5)
[2020-12-03 04:53] LABS: Basophils % 0.5 %; Eosinophils # 0.1 K/mcL (0.0-0.6); Hematocrit 39.4 % (37.5-50.1); Immature Granulocytes % 0.9 % (0-4); Immature Platelets 4.1 % (1.1-6.1); Lymphocytes # 1.2 K/mcL (0.6-4.6); Lymphocytes % 21.1 %; Mean Corpuscular HGB Conc 31.2 g/dL (31.6-35.5); Mean Corpuscular Hemoglobin 31.5 pg (28.0-33.3); Mean Platelet Volume 11.5 fL (9.4-12.4); Monocytes # 0.7 K/mcL (0.0-1.3); Monocytes % 13.1 %; Neutrophils # 3.5 K/mcL (1.6-8.9); Nucleated Red Blood Cells 1.3 /100 WBC (0); Segmented Neutrophils % 62.4 %; White Blood Count 5.6 K/mcL (4.3-11.1)
[2020-12-03 04:57] LABS: Platelet Count 92 K/mcL (140-400)
[2020-12-03 05:12] LABS: Alanine Aminotransferase 35 Units/L (7-52); Albumin 3.5 g/dL (3.5-5.7); Albumin/Globulin Ratio 1.1 (1.1-2.2); Alkaline Phosphatase 83 Units/L (34-104); Aspartate Amino Transferase 49 Units/L (13-39); BUN/Creatinine Ratio 10 (6-26); Bilirubin,Direct 0.2 mg/dL (0.0-0.2); Bilirubin,Indirect 0.6 mg/dL (0.0-1.0); Bilirubin,Total 0.8 mg/dL (0.3-1.0); Blood Urea Nitrogen 13 mg/dL (8-23); Calcium 9.6 mg/dL (8.6-10.3); Carbon Dioxide 27 mEq/L (23-29); Chloride 123 mEq/L (98-107); Globulin 3.3 g/dL (2.4-3.5); Glucose 131 mg/dL (70-105); Magnesium 1.5 mg/dL (1.6-2.6); Osmolality,Calculated 326 (280-300); Phosphorous 1.5 mg/dL (2.7-4.5); Sodium 157 mEq/L (136-145); Total Protein 6.8 g/dL (6.4-8.9); eGFR For African Americans > 60 (> 60); eGFR For Non-African Americans 59 (> 60)
[2020-12-03] MEDS: Insulin LISPRO 300 UNITS/3 ML VIAL SUBQ SCH ×3 (05:29→19:48)
[2020-12-03] MEDS ORDERED: Potassium Phosphate 44 MEQ in 0.9 % Sodium Chloride 250 ML IVPB ONE (07:49)
[2020-12-03] MEDS: Lactulose Oral Soln 20 GM/30 ML UDC PO SCH ×2 (09:14→19:55)
[2020-12-03] MEDS: levETIRAcetam 250 MG in 0.9 % Sodium Chloride 100 ML IVPB SCH (11:30)
[2020-12-03] MEDS: Topiramate 100 MG TABLET PO SCH ×2 (12:00→19:55)
[2020-12-03] MEDS: *HR* LORazepam 1 MG TABLET PO SCH ×2 (16:03→19:54)
[2020-12-03] MEDS: chlorproMAZINE 25 MG TABLET PO SCH ×2 (16:03→19:55)
[2020-12-03] MEDS ORDERED: Potassium Chloride Elixir 20 MEQ/15 ML UDC PO ONE (18:25)
[2020-12-03] MEDS: OXcarbazepine 150 MG TABLET PO SCH (19:54)
[2020-12-03] MEDS: Latanoprost 2.5 ML BOTTLE BOTH EYES SCH (19:55)
[2020-12-03] MEDS: levETIRAcetam 250 MG TABLET PO SCH (19:55)
[2020-12-03] MEDS: QUEtiapine Fumarate 100 MG TABLET PO SCH (19:55)
[2020-12-04] MEDS: Insulin LISPRO 300 UNITS/3 ML VIAL SUBQ SCH ×4 (04:27→17:04)
[2020-12-04 04:45] LABS: Hematocrit 36.1 % (37.5-50.1); Immature Granulocytes % 0.9 % (0-4)
[2020-12-04 04:47] LABS: Basophils % 0.2 %; Eosinophils # 0.1 K/mcL (0.0-0.6); Eosinophils % 2.6 %; Hemoglobin 11.8 g/dL (12.9-16.9); Immature Platelets 6.1 % (1.1-6.1); Lymphocytes # 1.4 K/mcL (0.6-4.6); Lymphocytes % 29.4 %; Mean Corpuscular HGB Conc 32.7 g/dL (31.6-35.5); Mean Corpuscular Hemoglobin 31.6 pg (28.0-33.3); Mean Corpuscular Volume 96.5 fL (83.0-100.0); Mean Platelet Volume 11.6 fL (9.4-12.4); Monocytes # 0.5 K/mcL (0.0-1.3); Neutrophils # 2.6 K/mcL (1.6-8.9); Nucleated Red Blood Cells 1.3 /100 WBC (0); Red Blood Count 3.74 M/mcL (4.19-5.50); Red Cell Distribution Width 14.1 % (11.5-14.5); Segmented Neutrophils % 55.9 %; White Blood Count 4.6 K/mcL (4.3-11.1)
[2020-12-04 04:59] LABS: Platelet Count 82 K/mcL (140-400)
[2020-12-04 05:07] LABS: Alanine Aminotransferase 66 Units/L (7-52); Albumin 3.1 g/dL (3.5-5.7); Albumin/Globulin Ratio 1.1 (1.1-2.2); Alkaline Phosphatase 82 Units/L (34-104); Aspartate Amino Transferase 105 Units/L (13-39); BUN/Creatinine Ratio 8 (6-26); Bilirubin,Direct 0.2 mg/dL (0.0-0.2); Bilirubin,Indirect 0.6 mg/dL (0.0-1.0); Bilirubin,Total 0.8 mg/dL (0.3-1.0); Blood Urea Nitrogen 8 mg/dL (8-23); Calcium 8.1 mg/dL (8.6-10.3); Carbon Dioxide 26 mEq/L (23-29); Chloride 114 mEq/L (98-107); Globulin 2.8 g/dL (2.4-3.5); Glucose 95 mg/dL (70-105); Magnesium 1.3 mg/dL (1.6-2.6); Osmolality,Calculated 304 (280-300); Potassium 2.6 mEq/L (3.5-5.1); Sodium 148 mEq/L (136-145); Total Protein 5.9 g/dL (6.4-8.9); eGFR For African Americans > 60 (> 60); eGFR For Non-African Americans > 60 (> 60)
[2020-12-04] MEDS ORDERED: Potassium Chloride Elixir 20 MEQ/15 ML UDC PO ONE ×3 (07:36→21:00)
[2020-12-04] MEDS: Lactulose Oral Soln 20 GM/30 ML UDC PO SCH ×2 (08:03→20:30)
[2020-12-04] MEDS: levETIRAcetam 250 MG TABLET PO SCH ×2 (08:05→20:36)
[2020-12-04] MEDS: QUEtiapine Fumarate 100 MG TABLET PO SCH ×4 (08:05→20:46)
[2020-12-04] MEDS: Topiramate 100 MG TABLET PO SCH ×2 (08:06→20:30)
[2020-12-04] MEDS: chlorproMAZINE 25 MG TABLET PO SCH ×3 (08:06→22:14)
[2020-12-04] MEDS: *HR* LORazepam 1 MG TABLET PO SCH ×3 (08:06→20:31)
[2020-12-04] MEDS: Potassium Chloride 20 MEQ in D5% in Water 1,000 ML IVC SCH (09:26)
[2020-12-04 15:51] LABS: BUN/Creatinine Ratio 6 (6-26); Blood Urea Nitrogen 6 mg/dL (8-23); Calcium 8.3 mg/dL (8.6-10.3); Carbon Dioxide 27 mEq/L (23-29); Chloride 113 mEq/L (98-107); Glucose 97 mg/dL (70-105); Magnesium 2.3 mg/dL (1.6-2.6); Osmolality,Calculated 302 (280-300); Sodium 147 mEq/L (136-145); eGFR For African Americans > 60 (> 60); eGFR For Non-African Americans > 60 (> 60)
[2020-12-04] MEDS: OXcarbazepine 150 MG TABLET PO SCH (20:35)
[2020-12-04] MEDS: Latanoprost 2.5 ML BOTTLE BOTH EYES SCH (20:37)
[2020-12-05] MEDS: Insulin LISPRO 300 UNITS/3 ML VIAL SUBQ SCH ×4 (00:01→17:44)
[2020-12-05] MEDS: Potassium Chloride 20 MEQ in D5% in Water 1,000 ML IVC SCH (00:08)
[2020-12-05 06:36] LABS: Hemoglobin 11.8 g/dL (12.9-16.9); Mean Corpuscular Hemoglobin 31.9 pg (28.0-33.3)
[2020-12-05 06:37] LABS: Basophils % 0.3 %; Eosinophils # 0.2 K/mcL (0.0-0.6); Eosinophils % 4.1 %; Hematocrit 35.5 % (37.5-50.1); Immature Granulocytes % 1.3 % (0-4); Immature Platelets 6.5 % (1.1-6.1); Lymphocytes # 0.9 K/mcL (0.6-4.6); Lymphocytes % 22.9 %; Mean Corpuscular HGB Conc 33.2 g/dL (31.6-35.5); Mean Corpuscular Volume 95.9 fL (83.0-100.0); Mean Platelet Volume 11.8 fL (9.4-12.4); Monocytes # 0.5 K/mcL (0.0-1.3); Monocytes % 13.1 %; Neutrophils # 2.3 K/mcL (1.6-8.9); Nucleated Red Blood Cells 1.5 /100 WBC (0); Red Cell Distribution Width 14.3 % (11.5-14.5); Segmented Neutrophils % 58.3 %; White Blood Count 3.9 K/mcL (4.3-11.1)
[2020-12-05 06:42] LABS: Platelet Count 83 K/mcL (140-400)
[2020-12-05 07:00] LABS: Alanine Aminotransferase 62 Units/L (7-52); Albumin 3.3 g/dL (3.5-5.7); Albumin/Globulin Ratio 1.1 (1.1-2.2); Alkaline Phosphatase 88 Units/L (34-104); Aspartate Amino Transferase 88 Units/L (13-39); BUN/Creatinine Ratio 5 (6-26); Bilirubin,Direct 0.1 mg/dL (0.0-0.2); Bilirubin,Indirect 0.5 mg/dL (0.0-1.0); Bilirubin,Total 0.6 mg/dL (0.3-1.0); Blood Urea Nitrogen 5 mg/dL (8-23); Calcium 8.3 mg/dL (8.6-10.3); Carbon Dioxide 27 mEq/L (23-29); Chloride 112 mEq/L (98-107); Globulin 2.9 g/dL (2.4-3.5); Glucose 103 mg/dL (70-105); Osmolality,Calculated 298 (280-300); Potassium 3.1 mEq/L (3.5-5.1); Sodium 145 mEq/L (136-145); Total Protein 6.2 g/dL (6.4-8.9); eGFR For African Americans > 60 (> 60); eGFR For Non-African Americans > 60 (> 60)
[2020-12-05] MEDS ORDERED: Potassium Chloride 20 MEQ in D5% in Water 1,000 ML IVC SCH ×2 (07:33→17:31)
[2020-12-05] MEDS: Potassium Chloride Elixir 20 MEQ/15 ML UDC PO ONE ×2 (08:33→13:58)
[2020-12-05] MEDS: Lactulose Oral Soln 20 GM/30 ML UDC PO SCH ×4 (08:33→22:33)
[2020-12-05] MEDS: levETIRAcetam 250 MG TABLET PO SCH ×2 (08:34→20:20)
[2020-12-05] MEDS: Topiramate 100 MG TABLET PO SCH ×2 (08:34→20:21)
[2020-12-05] MEDS: chlorproMAZINE 25 MG TABLET PO SCH ×3 (08:34→20:20)
[2020-12-05] MEDS: QUEtiapine Fumarate 100 MG TABLET PO SCH ×4 (08:34→20:21)
[2020-12-05] MEDS: *HR* LORazepam 1 MG TABLET PO SCH ×3 (08:34→20:21)
[2020-12-05] MEDS ORDERED: Potassium Chloride Elixir 20 MEQ/15 ML UDC PO ONE (13:00)
[2020-12-05] MEDS ORDERED: *HR* LORazepam 2 MG/ML VIAL IVP ONE (14:17)
[2020-12-05 17:29] LABS: BUN/Creatinine Ratio 10 (6-26); Blood Urea Nitrogen 9 mg/dL (8-23); Calcium 8.3 mg/dL (8.6-10.3); Carbon Dioxide 23 mEq/L (23-29); Chloride 112 mEq/L (98-107); Glucose 102 mg/dL (70-105); Osmolality,Calculated 295 (280-300); Potassium 4.1 mEq/L (3.5-5.1); Sodium 143 mEq/L (136-145); eGFR For African Americans > 60 (> 60); eGFR For Non-African Americans > 60 (> 60)
[2020-12-05] MEDS: Latanoprost 2.5 ML BOTTLE BOTH EYES SCH (20:23)
[2020-12-05] MEDS: OXcarbazepine 150 MG TABLET PO SCH (20:45)
[2020-12-05] MEDS ORDERED: Lactulose 200 GM, Sodium Chloride IRRigation 700 ML RC ONE (22:00)
[2020-12-06] MEDS: Insulin LISPRO 300 UNITS/3 ML VIAL SUBQ SCH ×4 (00:05→17:37)
[2020-12-06 06:31] LABS: Basophils % 0.4 %; Eosinophils # 0.2 K/mcL (0.0-0.6); Eosinophils % 2.7 %; Hematocrit 36.1 % (37.5-50.1); Hemoglobin 12.2 g/dL (12.9-16.9); Immature Granulocytes % 0.9 % (0-4); Lymphocytes # 1.1 K/mcL (0.6-4.6); Mean Corpuscular HGB Conc 33.8 g/dL (31.6-35.5); Mean Corpuscular Hemoglobin 32.5 pg (28.0-33.3); Mean Corpuscular Volume 96.3 fL (83.0-100.0); Mean Platelet Volume 11.8 fL (9.4-12.4); Monocytes # 0.9 K/mcL (0.0-1.3); Monocytes % 16.8 %; Neutrophils # 3.4 K/mcL (1.6-8.9); Nucleated Red Blood Cells 0.5 /100 WBC (0); Red Blood Count 3.75 M/mcL (4.19-5.50); Red Cell Distribution Width 14.9 % (11.5-14.5); Segmented Neutrophils % 60.2 %; White Blood Count 5.6 K/mcL (4.3-11.1)
[2020-12-06 06:32] LABS: Platelet Count 88 K/mcL (140-400)
[2020-12-06 06:53] LABS: BUN/Creatinine Ratio 5 (6-26); Blood Urea Nitrogen 5 mg/dL (8-23); Calcium 8.4 mg/dL (8.6-10.3); Carbon Dioxide 25 mEq/L (23-29); Chloride 111 mEq/L (98-107); Glucose 106 mg/dL (70-105); Magnesium 1.8 mg/dL (1.6-2.6); Osmolality,Calculated 292 (280-300); Potassium 3.3 mEq/L (3.5-5.1); Sodium 142 mEq/L (136-145); eGFR For African Americans > 60 (> 60); eGFR For Non-African Americans > 60 (> 60)
[2020-12-06] MEDS: chlorproMAZINE 25 MG TABLET PO SCH ×3 (10:27→20:18)
[2020-12-06] MEDS: Topiramate 100 MG TABLET PO SCH ×2 (10:27→20:18)
[2020-12-06] MEDS: *HR* LORazepam 1 MG TABLET PO SCH ×3 (10:28→20:18)
[2020-12-06] MEDS: levETIRAcetam 250 MG TABLET PO SCH ×2 (10:28→20:18)
[2020-12-06] MEDS: QUEtiapine Fumarate 100 MG TABLET PO SCH ×4 (10:28→20:18)
[2020-12-06] MEDS: Lactulose Oral Soln 20 GM/30 ML UDC PO SCH ×3 (10:28→20:19)
[2020-12-06] MEDS: Potassium Chloride 20 MEQ in D5% in Water 1,000 ML IVC SCH (19:34)
[2020-12-06] MEDS: Latanoprost 2.5 ML BOTTLE BOTH EYES SCH (20:20)
[2020-12-06] MEDS: OXcarbazepine 150 MG TABLET PO SCH (20:24)
[2020-12-07 05:23] LABS: Basophils % 0.5 %
[2020-12-07 05:25] LABS: Eosinophils # 0.2 K/mcL (0.0-0.6); Eosinophils % 3.8 %; Hematocrit 36.2 % (37.5-50.1); Hemoglobin 11.9 g/dL (12.9-16.9); Immature Granulocytes % 1.2 % (0-4); Immature Platelets 7.2 % (1.1-6.1); Lymphocytes # 1.1 K/mcL (0.6-4.6); Lymphocytes % 26.8 %; Mean Corpuscular HGB Conc 32.9 g/dL (31.6-35.5); Mean Corpuscular Hemoglobin 32.1 pg (28.0-33.3); Mean Corpuscular Volume 97.6 fL (83.0-100.0); Mean Platelet Volume 11.8 fL (9.4-12.4); Monocytes # 0.6 K/mcL (0.0-1.3); Monocytes % 14.9 %; Neutrophils # 2.2 K/mcL (1.6-8.9); Nucleated Red Blood Cells 0.9 /100 WBC (0); Red Blood Count 3.71 M/mcL (4.19-5.50); Red Cell Distribution Width 15.3 % (11.5-14.5); Segmented Neutrophils % 52.8 %; White Blood Count 4.2 K/mcL (4.3-11.1)
[2020-12-07 05:28] LABS: Platelet Count 77 K/mcL (140-400)
[2020-12-07 05:44] LABS: BUN/Creatinine Ratio 6 (6-26); Blood Urea Nitrogen 5 mg/dL (8-23); Calcium 8.3 mg/dL (8.6-10.3); Carbon Dioxide 24 mEq/L (23-29); Chloride 112 mEq/L (98-107); Glucose 94 mg/dL (70-105); Osmolality,Calculated 289 (280-300); Potassium 3.3 mEq/L (3.5-5.1); Sodium 141 mEq/L (136-145); eGFR For African Americans > 60 (> 60); eGFR For Non-African Americans > 60 (> 60)
[2020-12-07] MEDS: chlorproMAZINE 25 MG TABLET PO SCH (09:18)
[2020-12-07] MEDS: *HR* LORazepam 1 MG TABLET PO SCH (09:18)
[2020-12-07] MEDS: Lactulose Oral Soln 20 GM/30 ML UDC PO SCH (09:19)
[2020-12-07] MEDS: QUEtiapine Fumarate 100 MG TABLET PO SCH (09:19)
[2020-12-07] MEDS: levETIRAcetam 250 MG TABLET PO SCH (09:19)
[2020-12-07] MEDS: Topiramate 100 MG TABLET PO SCH (09:19)
[2020-12-07 10:23] VITALS: BP 107/69
== END 2020-12-07 15:44 | disposition home or self-care (01) | DRG 426 ==
LOC: 3ANU 23:17 → EMEROOARM 23:17 → SUATTDRO 12-02 01:55 → 3ANU 12-02 02:49 → 2NNU 12-02 15:52 → 3ANU 12-04 16:22
PROVIDERS: ADMIT Family Medicine; ATTEND Internal Medicine

== ENCOUNTER 2021-02-12 18:35 | Observation (INO) ==
[2021-02-12 19:21] LABS: Hematocrit 43.2 % (37.5-50.1); Hemoglobin 13.6 g/dL (12.9-16.9); Mean Corpuscular HGB Conc 31.5 g/dL (31.6-35.5); Mean Corpuscular Hemoglobin 30.4 pg (28.0-33.3); Mean Corpuscular Volume 96.4 fL (83.0-100.0); Red Blood Count 4.48 M/mcL (4.19-5.50); Red Cell Distribution Width 12.2 % (11.5-14.5); Segmented Neutrophils % 56.9 %
[2021-02-12 19:23] LABS: Basophils % 0.9 %; Eosinophils # 0.2 K/mcL (0.0-0.6); Eosinophils % 4.7 %; Lymphocytes # 0.9 K/mcL (0.6-4.6); Lymphocytes % 26.3 %; Mean Platelet Volume 11.7 fL (9.4-12.4); Monocytes # 0.4 K/mcL (0.0-1.3); Monocytes % 11.2 %; Neutrophils # 1.9 K/mcL (1.6-8.9); Platelet Count 76 K/mcL (140-400); White Blood Count 3.4 K/mcL (4.3-11.1)
[2021-02-12 19:33] LABS: INR 1.2; Prothrombin Time 13.9 Seconds (9.4-12.1)
[2021-02-12 19:36] LABS: Activated Partial Thrombo Time 32.5 Seconds (26.0-36.0)
[2021-02-12 19:48] LABS: Phosphorous 4.1 mg/dL (2.7-4.5)
[2021-02-12 19:56] LABS: Alanine Aminotransferase 8 Units/L (7-52); Albumin 3.7 g/dL (3.5-5.7); Albumin/Globulin Ratio 1.2 (1.1-2.2); Alkaline Phosphatase 81 Units/L (34-104); Aspartate Amino Transferase 14 Units/L (13-39); BUN/Creatinine Ratio 9 (6-26); Bilirubin,Direct 0.1 mg/dL (0.0-0.2); Bilirubin,Indirect 0.3 mg/dL (0.0-1.0); Bilirubin,Total 0.4 mg/dL (0.3-1.0); Blood Urea Nitrogen 12 mg/dL (8-23); Calcium 9.4 mg/dL (8.6-10.3); Carbon Dioxide 25 mEq/L (23-29); Chloride 118 mEq/L (98-107); Creatine Kinase 72 Units/L (30-223); Ethanol < 10 mg/dL (Less than 10); Globulin 3.2 g/dL (2.4-3.5); Glucose 84 mg/dL (70-105); Osmolality,Calculated 309 (280-300); Potassium 3.7 mEq/L (3.5-5.1); Sodium 150 mEq/L (136-145); Total Protein 6.9 g/dL (6.4-8.9); Troponin I < 0.03 ng/mL (< 0.04); eGFR For African Americans > 60 (> 60); eGFR For Non-African Americans 58 (> 60)
[2021-02-12 21:07] LABS: Bilirubin,Urine Negative (Negative); Blood,Urine Negative (Negative); Clarity,Urine Clear (Clear); Color,Urine Light-Yellow (Yellow); Glucose,Urine (UA) Normal (Normal); Ketones,Urine Negative (Negative); Leukocyte Esterase,Urine Negative (Negative); Nitrite,Urine Negative (Negative); PH,Urine 6.5 pH Units (5.0-8.0); Protein,Urine Negative (Neg-Trace); Specific Gravity,Urine 1.014 (1.010-1.025); Urobilinogen,Urine Normal (Normal)
[2021-02-12 21:14] LABS: Amphetamine Screen,Urine Negative ng/mL (Cutoff=1000); Barbiturate Screen,Urine Negative ng/mL (Cutoff=200); Benzodiazepines Screen,Urine Negative ng/mL (Cutoff=200); Cannabinoid Screen,Urine Negative ng/mL (Cutoff = 50); Cocaine Screen,Urine Negative ng/mL (Cutoff= 300); Opiate Screen,Urine Negative ng/mL (Cutoff=300); Phencyclidine Screen,Urine Negative ng/mL (Cutoff=25)
[2021-02-12] MEDS ORDERED: cefTRIAXone 1,000 MG in Water for inj. (sterile) 10 ML IVP ONE (21:28)
[2021-02-12] MEDS ORDERED: Azithromycin 500 MG in D5% in Water 250 ML IVPB STA (21:30)
[2021-02-12 21:47] LABS: Adenovirus Not Detected (Not Detect); Bordetella Pertussis Not Detected (Not Detect); Chlamydophila pneumoniae Not Detected (Not Detect); Coronavirus 229E Not Detected (Not Detect); Coronavirus HKU1 Not Detected (Not Detect); Coronavirus NL63 Not Detected (Not Detect); Coronavirus OC43 Not Detected (Not Detect); Human Metapneumovirus Not Detected (Not Detect); Human Rhinovirus/Enterovirus Not Detected (Not Detect); Influenza A Subtype 2009 H1 Not Detected (Not Detect); Influenza B Not Detected (Not Detect); Mycoplasma pneumoniae Not Detected (Not Detect); Parainfluenza Virus 1 Not Detected (Not Detect); Parainfluenza Virus 2 Not Detected (Not Detect); Parainfluenza Virus 3 Not Detected (Not Detect); Parainfluenza Virus 4 Not Detected (Not Detect); Respiratory Syncytial Virus Not Detected (Not Detect); SARS-CoV-2 Not Detected (Not Detect)
[2021-02-13] MEDS ORDERED: Naloxone 0.4 MG/ML INJ IVP PRN (00:38)
[2021-02-13] MEDS ORDERED: Ondansetron 4 MG/2 ML VIAL IVP PRN (00:38)
[2021-02-13] MEDS ORDERED: Melatonin 3 MG TABLET PO PRN (00:38)
[2021-02-13] MEDS: D5% in Water 1,000 ML IVC SCH ×2 (02:27→14:10)
[2021-02-13] MEDS ORDERED: Artificial Tears SOLN 15 ML BOTTLE BOTH EYES PRN (03:54)
[2021-02-13 06:35] LABS: Hematocrit 42.1 % (37.5-50.1); Hemoglobin 13.6 g/dL (12.9-16.9); Mean Corpuscular HGB Conc 32.3 g/dL (31.6-35.5); Mean Corpuscular Hemoglobin 30.7 pg (28.0-33.3); Mean Platelet Volume 11.4 fL (9.4-12.4); Red Blood Count 4.43 M/mcL (4.19-5.50); Red Cell Distribution Width 11.9 % (11.5-14.5); Segmented Neutrophils % 60.7 %; White Blood Count 4.1 K/mcL (4.3-11.1)
[2021-02-13 06:36] LABS: Basophils % 0.7 %; Eosinophils # 0.2 K/mcL (0.0-0.6); Eosinophils % 4.6 %; Immature Granulocytes % 0.2 % (0-4); Lymphocytes % 23.7 %; Monocytes # 0.4 K/mcL (0.0-1.3); Monocytes % 10.1 %; Neutrophils # 2.5 K/mcL (1.6-8.9); Platelet Count 77 K/mcL (140-400)
[2021-02-13 06:55] LABS: Alanine Aminotransferase 10 Units/L (7-52); Albumin 3.6 g/dL (3.5-5.7); Albumin/Globulin Ratio 1.1 (1.1-2.2); Alkaline Phosphatase 85 Units/L (34-104); Aspartate Amino Transferase 14 Units/L (13-39); BUN/Creatinine Ratio 10 (6-26); Bilirubin,Total 0.4 mg/dL (0.3-1.0); Blood Urea Nitrogen 11 mg/dL (8-23); Carbon Dioxide 26 mEq/L (23-29); Chloride 117 mEq/L (98-107); Globulin 3.3 g/dL (2.4-3.5); Glucose 96 mg/dL (70-105); Magnesium 1.8 mg/dL (1.6-2.6); Osmolality,Calculated 305 (280-300); Phosphorous 2.7 mg/dL (2.7-4.5); Potassium 3.3 mEq/L (3.5-5.1); Sodium 148 mEq/L (136-145); Total Protein 6.9 g/dL (6.4-8.9); eGFR For African Americans > 60 (> 60); eGFR For Non-African Americans > 60 (> 60)
[2021-02-13] MEDS: chlorproMAZINE 25 MG TABLET PO SCH ×3 (11:07→20:07)
[2021-02-13] MEDS: levETIRAcetam 250 MG TABLET PO SCH ×2 (11:07→20:07)
[2021-02-13] MEDS: QUEtiapine Fumarate 100 MG TABLET PO SCH ×3 (11:07→20:07)
[2021-02-13] MEDS: Dorzolamide/Timolol OPTH 10 ML BOTTLE BOTH EYES SCH ×2 (14:10→20:08)
[2021-02-13] MEDS ORDERED: Latanoprost 2.5 ML BOTTLE BOTH EYES SCH (21:00)
[2021-02-13] MEDS ORDERED: VALBENAZINE TOSYLATE 80 MG PO SCH (21:00)
[2021-02-13] MEDS ORDERED: QUEtiapine Fumarate 100 MG TABLET PO SCH (21:00)
[2021-02-13] MEDS ORDERED: OXcarbazepine 150 MG TABLET PO SCH (21:30)
[2021-02-14 04:08] LABS: Basophils % 0.2 %; Immature Granulocytes % 0.2 % (0-4); Red Cell Distribution Width 11.6 % (11.5-14.5)
[2021-02-14 04:10] LABS: Eosinophils # 0.2 K/mcL (0.0-0.6); Eosinophils % 3.8 %; Hematocrit 40.9 % (37.5-50.1); Hemoglobin 13.7 g/dL (12.9-16.9); Immature Platelets 5.4 % (1.1-6.1); Lymphocytes # 1.2 K/mcL (0.6-4.6); Lymphocytes % 24.3 %; Mean Corpuscular HGB Conc 33.5 g/dL (31.6-35.5); Mean Corpuscular Hemoglobin 30.3 pg (28.0-33.3); Mean Corpuscular Volume 90.5 fL (83.0-100.0); Mean Platelet Volume 11.6 fL (9.4-12.4); Monocytes # 0.5 K/mcL (0.0-1.3); Monocytes % 10.1 %; Red Blood Count 4.52 M/mcL (4.19-5.50); Segmented Neutrophils % 61.4 %; White Blood Count 4.8 K/mcL (4.3-11.1)
[2021-02-14 04:17] LABS: Platelet Count 78 K/mcL (140-400)
[2021-02-14 04:28] LABS: BUN/Creatinine Ratio 13 (6-26); Blood Urea Nitrogen 14 mg/dL (8-23); Calcium 8.8 mg/dL (8.6-10.3); Carbon Dioxide 25 mEq/L (23-29); Chloride 110 mEq/L (98-107); Glucose 81 mg/dL (70-105); Osmolality,Calculated 294 (280-300); Potassium 3.4 mEq/L (3.5-5.1); Sodium 142 mEq/L (136-145); eGFR For African Americans > 60 (> 60); eGFR For Non-African Americans > 60 (> 60)
[2021-02-14] MEDS: QUEtiapine Fumarate 100 MG TABLET PO SCH (08:11)
[2021-02-14] MEDS: levETIRAcetam 250 MG TABLET PO SCH (08:11)
[2021-02-14] MEDS: chlorproMAZINE 25 MG TABLET PO SCH (08:11)
[2021-02-14] MEDS: Dorzolamide/Timolol OPTH 10 ML BOTTLE BOTH EYES SCH (08:12)
[2021-02-14 14:17] VITALS: BP 149/86
== END 2021-02-14 15:31 | disposition home or self-care (01) ==
LOC: EMEROOARM 18:35 → 3BNU 18:35
PROVIDERS: ADMIT Family Medicine; ATTEND Family Medicine

== ENCOUNTER 2021-02-26 13:07 | Observation (INO) ==
[2021-02-26 14:37] LABS: Hematocrit 40.8 % (37.5-50.1); Hemoglobin 13.2 g/dL (12.9-16.9); Mean Corpuscular HGB Conc 32.4 g/dL (31.6-35.5); Mean Corpuscular Hemoglobin 30.2 pg (28.0-33.3); Mean Corpuscular Volume 93.4 fL (83.0-100.0); Platelet Count 113 K/mcL (140-400); Red Blood Count 4.37 M/mcL (4.19-5.50); White Blood Count 2.4 K/mcL (4.3-11.1)
[2021-02-26 14:42] LABS: Alanine Aminotransferase 9 Units/L (7-52); Albumin 3.5 g/dL (3.5-5.7); Albumin/Globulin Ratio 1.1 (1.1-2.2); Alkaline Phosphatase 93 Units/L (34-104); Aspartate Amino Transferase 13 Units/L (13-39); BUN/Creatinine Ratio 7 (6-26); Bilirubin,Indirect 0.4 mg/dL (0.0-1.0); Bilirubin,Total 0.4 mg/dL (0.3-1.0); Blood Urea Nitrogen 9 mg/dL (8-23); Calcium 9.3 mg/dL (8.6-10.3); Carbon Dioxide 25 mEq/L (23-29); Chloride 119 mEq/L (98-107); Globulin 3.2 g/dL (2.4-3.5); Glucose 96 mg/dL (70-105); Lipase 29 Units/L (11-82); Osmolality,Calculated 309 (280-300); Potassium 3.8 mEq/L (3.5-5.1); Sodium 150 mEq/L (136-145); Total Protein 6.7 g/dL (6.4-8.9); Troponin I < 0.03 ng/mL (< 0.04); eGFR For African Americans > 60 (> 60); eGFR For Non-African Americans 56 (> 60)
[2021-02-26 15:42] LABS: Bilirubin,Urine Negative (Negative); Blood,Urine Small (Negative); Clarity,Urine Clear (Clear); Color,Urine Light-Yellow (Yellow); Glucose,Urine (UA) Normal (Normal); Ketones,Urine Negative (Negative); Leukocyte Esterase,Urine Negative (Negative); Nitrite,Urine Negative (Negative); PH,Urine 7.5 pH Units (5.0-8.0); Protein,Urine Trace mg/dL (Neg-Trace); Specific Gravity,Urine 1.016 (1.010-1.025); Urobilinogen,Urine Normal (Normal); WBC,Urine 0-3 per hpf (0-3)
[2021-02-26] MEDS ORDERED: Ibuprofen 400 MG TABLET PO PRN (17:10)
[2021-02-26] MEDS ORDERED: Naloxone 0.4 MG/ML INJ IVP PRN (17:10)
[2021-02-26] MEDS ORDERED: D5% in Water 1,000 ML IVC SCH ×2 (17:30→19:23)
[2021-02-26] MEDS ORDERED: Bisacodyl 10 MG RECTAL SUPPOSITORY RC PRN (17:35)
[2021-02-26] MEDS ORDERED: Artificial Tears SOLN 15 ML BOTTLE BOTH EYES PRN (18:03)
[2021-02-26 18:52] LABS: BUN/Creatinine Ratio 6 (6-26); Blood Urea Nitrogen 8 mg/dL (8-23); Calcium 9.3 mg/dL (8.6-10.3); Carbon Dioxide 25 mEq/L (23-29); Chloride 118 mEq/L (98-107); Glucose 90 mg/dL (70-105); Osmolality,Calculated 304 (280-300); Potassium 3.7 mEq/L (3.5-5.1); Sodium 148 mEq/L (136-145); eGFR For African Americans > 60 (> 60); eGFR For Non-African Americans 59 (> 60)
[2021-02-26] MEDS ORDERED: TOPIRAMATE 200 MG PO SCH (20:00)
[2021-02-26] MEDS: OXcarbazepine 150 MG TABLET PO SCH (22:12)
[2021-02-26] MEDS: Amoxicillin 500 MG CAPSULE PO SCH (22:12)
[2021-02-26] MEDS: Lactulose Oral Soln 20 GM/30 ML UDC PO SCH (22:12)
[2021-02-26] MEDS: QUEtiapine Fumarate 100 MG TABLET PO SCH ×2 (22:13→22:14)
[2021-02-26] MEDS: levETIRAcetam 250 MG TABLET PO SCH (22:14)
[2021-02-26] MEDS: *HR* LORazepam 1 MG TABLET PO SCH (22:14)
[2021-02-26 23:04] LABS: BUN/Creatinine Ratio 8 (6-26); Blood Urea Nitrogen 9 mg/dL (8-23); Carbon Dioxide 24 mEq/L (23-29); Chloride 117 mEq/L (98-107); Glucose 91 mg/dL (70-105); Osmolality,Calculated 302 (280-300); Potassium 3.6 mEq/L (3.5-5.1); Sodium 147 mEq/L (136-145); eGFR For African Americans > 60 (> 60); eGFR For Non-African Americans > 60 (> 60)
[2021-02-27] MEDS: VALBENAZINE TOSYLATE 80 MG PO SCH ×2 (01:19→21:08)
[2021-02-27] MEDS: chlorproMAZINE 25 MG TABLET PO SCH ×4 (01:21→21:30)
[2021-02-27] MEDS: Topiramate 100 MG TABLET PO SCH ×3 (01:22→21:29)
[2021-02-27] MEDS: Latanoprost 2.5 ML BOTTLE BOTH EYES SCH ×3 (01:22→21:27)
[2021-02-27 01:52] LABS: Basophils % 0.6 %; Eosinophils # 0.2 K/mcL (0.0-0.6); Eosinophils % 5.1 %; Hematocrit 37.9 % (37.5-50.1); Hemoglobin 12.2 g/dL (12.9-16.9); Immature Granulocytes % 0.3 % (0-4); Lymphocytes # 0.9 K/mcL (0.6-4.6); Lymphocytes % 29.8 %; Mean Corpuscular HGB Conc 32.2 g/dL (31.6-35.5); Mean Corpuscular Volume 93.3 fL (83.0-100.0); Mean Platelet Volume 10.7 fL (9.4-12.4); Monocytes # 0.3 K/mcL (0.0-1.3); Monocytes % 10.3 %; Neutrophils # 1.7 K/mcL (1.6-8.9); Platelet Count 119 K/mcL (140-400); Red Blood Count 4.06 M/mcL (4.19-5.50); Red Cell Distribution Width 12.7 % (11.5-14.5); Segmented Neutrophils % 53.9 %; White Blood Count 3.1 K/mcL (4.3-11.1)
[2021-02-27 02:05] LABS: BUN/Creatinine Ratio 8 (6-26); Blood Urea Nitrogen 9 mg/dL (8-23); Calcium 8.7 mg/dL (8.6-10.3); Carbon Dioxide 24 mEq/L (23-29); Chloride 117 mEq/L (98-107); Glucose 96 mg/dL (70-105); Osmolality,Calculated 301 (280-300); Potassium 3.4 mEq/L (3.5-5.1); Sodium 146 mEq/L (136-145); eGFR For African Americans > 60 (> 60); eGFR For Non-African Americans > 60 (> 60)
[2021-02-27] MEDS: *HR* Enoxaparin 40 MG/0.4 ML SYRINGE SQ SCH (05:37)
[2021-02-27] MEDS: Amoxicillin 500 MG CAPSULE PO SCH ×2 (08:19→21:06)
[2021-02-27] MEDS: Lactulose Oral Soln 20 GM/30 ML UDC PO SCH ×2 (08:19→21:08)
[2021-02-27] MEDS: Cholecalciferol (D-3) 1,000 UNIT (25MCG) TABLET PO SCH ×3 (08:20→21:11)
[2021-02-27] MEDS: Multivit/Ca/Min/Fe/FA 1 TAB TABLET PO SCH (08:21)
[2021-02-27] MEDS: levETIRAcetam 250 MG TABLET PO SCH ×2 (08:28→21:07)
[2021-02-27] MEDS: polyethylene glycoL 3350 17 GM POWD.PACK PO SCH (08:28)
[2021-02-27] MEDS: Melatonin 3 MG TABLET PO SCH (08:29)
[2021-02-27] MEDS: *HR* LORazepam 1 MG TABLET PO SCH ×3 (08:34→21:05)
[2021-02-27] MEDS: QUEtiapine Fumarate 100 MG TABLET PO SCH ×4 (08:34→21:07)
[2021-02-27 09:24] LABS: BUN/Creatinine Ratio 7 (6-26); Blood Urea Nitrogen 8 mg/dL (8-23); Carbon Dioxide 24 mEq/L (23-29); Chloride 115 mEq/L (98-107); Glucose 91 mg/dL (70-105); Osmolality,Calculated 296 (280-300); Potassium 3.3 mEq/L (3.5-5.1); Sodium 144 mEq/L (136-145); eGFR For African Americans > 60 (> 60); eGFR For Non-African Americans > 60 (> 60)
[2021-02-27] MEDS: OXcarbazepine 150 MG TABLET PO SCH (21:07)
[2021-02-28] MEDS: *HR* Enoxaparin 40 MG/0.4 ML SYRINGE SQ SCH (05:56)
[2021-02-28 07:37] LABS: Basophils % 0.9 %; Eosinophils # 0.2 K/mcL (0.0-0.6); Eosinophils % 5.7 %; Hematocrit 40.2 % (37.5-50.1); Hemoglobin 13.2 g/dL (12.9-16.9); Immature Granulocytes % 0.6 % (0-4); Lymphocytes # 1.1 K/mcL (0.6-4.6); Lymphocytes % 33.8 %; Mean Corpuscular HGB Conc 32.8 g/dL (31.6-35.5); Mean Corpuscular Hemoglobin 30.2 pg (28.0-33.3); Mean Platelet Volume 11.4 fL (9.4-12.4); Monocytes # 0.4 K/mcL (0.0-1.3); Monocytes % 10.9 %; Neutrophils # 1.6 K/mcL (1.6-8.9); Platelet Count 121 K/mcL (140-400); Red Blood Count 4.37 M/mcL (4.19-5.50); Red Cell Distribution Width 12.3 % (11.5-14.5); Segmented Neutrophils % 48.1 %; White Blood Count 3.3 K/mcL (4.3-11.1)
[2021-02-28 07:46] LABS: BUN/Creatinine Ratio 7 (6-26); Blood Urea Nitrogen 8 mg/dL (8-23); Carbon Dioxide 24 mEq/L (23-29); Chloride 113 mEq/L (98-107); Glucose 83 mg/dL (70-105); Osmolality,Calculated 293 (280-300); Potassium 3.5 mEq/L (3.5-5.1); Sodium 143 mEq/L (136-145); eGFR For African Americans > 60 (> 60); eGFR For Non-African Americans > 60 (> 60)
[2021-02-28] MEDS: polyethylene glycoL 3350 17 GM POWD.PACK PO SCH (09:16)
[2021-02-28] MEDS: Lactulose Oral Soln 20 GM/30 ML UDC PO SCH (09:16)
[2021-02-28] MEDS: levETIRAcetam 250 MG TABLET PO SCH (09:16)
[2021-02-28] MEDS: Cholecalciferol (D-3) 1,000 UNIT (25MCG) TABLET PO SCH ×2 (09:16→09:17)
[2021-02-28] MEDS: Melatonin 3 MG TABLET PO SCH (09:17)
[2021-02-28] MEDS: Amoxicillin 500 MG CAPSULE PO SCH (09:18)
[2021-02-28] MEDS: Multivit/Ca/Min/Fe/FA 1 TAB TABLET PO SCH (09:18)
[2021-02-28] MEDS: QUEtiapine Fumarate 100 MG TABLET PO SCH ×2 (09:20→13:25)
[2021-02-28] MEDS: *HR* LORazepam 1 MG TABLET PO SCH ×2 (09:20→13:26)
[2021-02-28] MEDS: Topiramate 100 MG TABLET PO SCH (09:21)
[2021-02-28] MEDS: chlorproMAZINE 25 MG TABLET PO SCH ×2 (09:21→13:25)
[2021-02-28 10:44] VITALS: BP 138/98
== END 2021-02-28 15:24 | disposition other institution (70) ==
LOC: EMEROOARM 13:07 → 3BNU 13:07
PROVIDERS: ADMIT Internal Medicine; ATTEND Internal Medicine

== ENCOUNTER 2021-03-21 13:40 | Inpatient (IN) ==
[2021-03-21 15:25] LABS: Basophils % 0.6 %; Immature Granulocytes % 0.3 % (0-4); Red Cell Distribution Width 12.5 % (11.5-14.5); White Blood Count 3.1 K/mcL (4.3-11.1)
[2021-03-21 15:25] LABS: VBG Ionized Calcium 1.32 mmol/L (1.15-1.35)
[2021-03-21 15:27] LABS: Eosinophils # 0.2 K/mcL (0.0-0.6); Eosinophils % 5.8 %; Hematocrit 43.7 % (37.5-50.1); Hemoglobin 13.5 g/dL (12.9-16.9); Lymphocytes # 0.7 K/mcL (0.6-4.6); Lymphocytes % 22.4 %; Mean Corpuscular HGB Conc 30.9 g/dL (31.6-35.5); Mean Corpuscular Hemoglobin 29.6 pg (28.0-33.3); Mean Corpuscular Volume 95.8 fL (83.0-100.0); Mean Platelet Volume 11.5 fL (9.4-12.4); Monocytes # 0.4 K/mcL (0.0-1.3); Monocytes % 11.5 %; Red Blood Count 4.56 M/mcL (4.19-5.50); Segmented Neutrophils % 59.4 %
[2021-03-21 15:28] LABS: Neutrophils # 1.8 K/mcL (1.6-8.9); Platelet Count 72 K/mcL (140-400)
[2021-03-21 15:39] LABS: INR 1.5; Prothrombin Time 17.6 Seconds (9.4-12.1)
[2021-03-21 15:47] LABS: Alanine Aminotransferase 10 Units/L (7-52); Albumin 3.9 g/dL (3.5-5.7); Albumin/Globulin Ratio 1.2 (1.1-2.2); Alkaline Phosphatase 93 Units/L (34-104); Aspartate Amino Transferase 17 Units/L (13-39); BUN/Creatinine Ratio 7 (6-26); Bilirubin,Total 0.5 mg/dL (0.3-1.0); Blood Urea Nitrogen 10 mg/dL (8-23); Calcium 10.6 mg/dL (8.6-10.3); Carbon Dioxide 25 mEq/L (23-29); Chloride 125 mEq/L (98-107); Creatine Kinase 173 Units/L (30-223); Globulin 3.3 g/dL (2.4-3.5); Glucose 105 mg/dL (70-105); Magnesium 1.9 mg/dL (1.6-2.6); Osmolality,Calculated 323 (280-300); Potassium 3.8 mEq/L (3.5-5.1); Sodium 157 mEq/L (136-145); Total Protein 7.2 g/dL (6.4-8.9); Troponin I < 0.03 ng/mL (< 0.04); eGFR For African Americans > 60 (> 60); eGFR For Non-African Americans 50 (> 60)
[2021-03-21] MEDS ORDERED: Isovue-370 500 ML BOTTLE IVP ONE (15:55)
[2021-03-21 16:00] LABS: Thyroid Stimulating Hormone 1.323 mcIU/mL (0.340-5.600)
[2021-03-21 16:18] LABS: Amorphous Sediment,Urine Few per hpf (None-Few); Bacteria,Urine Few per hpf (None-Few); Bilirubin,Urine Negative (Negative); Blood,Urine Trace (Negative); Clarity,Urine Turbid (Clear); Color,Urine Light-Yellow (Yellow); Glucose,Urine (UA) Normal (Normal); Hyaline Casts,Urine Few per lpf (None Seen); Ketones,Urine Negative (Negative); Leukocyte Esterase,Urine Negative (Negative); Nitrite,Urine Negative (Negative); PH,Urine 7.5 pH Units (5.0-8.0); Protein,Urine Negative (Neg-Trace); Specific Gravity,Urine 1.012 (1.010-1.025); Urobilinogen,Urine Normal (Normal); WBC,Urine 0-3 per hpf (0-3)
[2021-03-21] MEDS ORDERED: 0.9 % Sodium Chloride 1,000 ML IVC SCH (16:45)
[2021-03-21] MEDS ORDERED: Acetaminophen 325 MG TABLET PO PRN (17:37)
[2021-03-21] MEDS ORDERED: Naloxone 0.4 MG/ML INJ IVP PRN (17:37)
[2021-03-21] MEDS ORDERED: Mag Hydrox/Al Hydrox/Simeth 30 ML UDC PO PRN (17:37)
[2021-03-21] MEDS ORDERED: Melatonin 3 MG TABLET PO PRN (17:37)
[2021-03-21] MEDS ORDERED: Ondansetron ODT 4 MG TAB.RAPDIS SL PRN (17:37)
[2021-03-21] MEDS ORDERED: *HR* Heparin 5,000 UNIT/ML VIAL IVP PRN ×2 (17:43)
[2021-03-21] MEDS ORDERED: *HR* Heparin 5,000 UNIT/ML VIAL IVP ONE (17:43)
[2021-03-21] MEDS ORDERED: *HR* LORazepam 2 MG/ML VIAL IVP ONE (18:01)
[2021-03-21] MEDS ORDERED: Dextrose Gel 15 GM/37.5 ML TUBE PO PRN ×2 (18:11)
[2021-03-21] MEDS ORDERED: D5% in Water 1,000 ML IVC PRN (18:11)
[2021-03-21] MEDS ORDERED: *HR* Dextrose 50 % in Water (Vial) 50 ML VIAL IVP PRN (18:11)
[2021-03-21] MEDS ORDERED: Perflutren Lipid Microsphere 1.3 ML in 0.9 % Sodium Chloride 8.7 ML IVP PRN (18:18)
[2021-03-21] MEDS: D5% in Water 1,000 ML IVC SCH (18:33)
[2021-03-21] MEDS: Heparin 25,000UNIT/250ML 1/2NS 25,000 UNIT/250 ML IV.SOLN IVC SCH (18:35)
[2021-03-21 19:09] LABS: BUN/Creatinine Ratio 7 (6-26); Blood Urea Nitrogen 10 mg/dL (8-23); Calcium 9.6 mg/dL (8.6-10.3); Carbon Dioxide 23 mEq/L (23-29); Chloride 126 mEq/L (98-107); Glucose 92 mg/dL (70-105); Osmolality,Calculated 321 (280-300); Potassium 3.7 mEq/L (3.5-5.1); Sodium 156 mEq/L (136-145); eGFR For African Americans > 60 (> 60); eGFR For Non-African Americans 53 (> 60)
[2021-03-21] MEDS ORDERED: Insulin LISPRO 300 UNITS/3 ML VIAL SUBQ SCH (21:00)
[2021-03-21] MEDS: *HR* LORazepam 1 MG TABLET PO SCH (21:18)
[2021-03-21 23:00] LABS: Adenovirus Not Detected (Not Detect); Bordetella Pertussis Not Detected (Not Detect); Chlamydophila pneumoniae Not Detected (Not Detect); Coronavirus 229E Not Detected (Not Detect); Coronavirus HKU1 Not Detected (Not Detect); Coronavirus NL63 Not Detected (Not Detect); Coronavirus OC43 Not Detected (Not Detect); Human Metapneumovirus Not Detected (Not Detect); Human Rhinovirus/Enterovirus Not Detected (Not Detect); Influenza A Subtype 2009 H1 Not Detected (Not Detect); Influenza B Not Detected (Not Detect); Mycoplasma pneumoniae Not Detected (Not Detect); Parainfluenza Virus 1 Not Detected (Not Detect); Parainfluenza Virus 2 Not Detected (Not Detect); Parainfluenza Virus 3 Not Detected (Not Detect); Parainfluenza Virus 4 Not Detected (Not Detect); Respiratory Syncytial Virus Not Detected (Not Detect); SARS-CoV-2 Not Detected (Not Detect)
[2021-03-22 02:05] LABS: Hematocrit 43.9 % (37.5-50.1); Hemoglobin 13.9 g/dL (12.9-16.9); Immature Platelets 4.2 % (1.1-6.1); Mean Corpuscular HGB Conc 31.7 g/dL (31.6-35.5); Mean Corpuscular Hemoglobin 30.2 pg (28.0-33.3); Mean Corpuscular Volume 95.4 fL (83.0-100.0); Mean Platelet Volume 11.6 fL (9.4-12.4); Red Blood Count 4.6 M/mcL (4.19-5.50); Red Cell Distribution Width 12.5 % (11.5-14.5); White Blood Count 3.4 K/mcL (4.3-11.1)
[2021-03-22 02:26] LABS: BUN/Creatinine Ratio 6 (6-26); Blood Urea Nitrogen 8 mg/dL (8-23); Calcium 9.5 mg/dL (8.6-10.3); Carbon Dioxide 25 mEq/L (23-29); Chloride 123 mEq/L (98-107); Glucose 87 mg/dL (70-105); Osmolality,Calculated 316 (280-300); Potassium 3.2 mEq/L (3.5-5.1); Sodium 154 mEq/L (136-145); eGFR For African Americans > 60 (> 60); eGFR For Non-African Americans 59 (> 60)
[2021-03-22] MEDS: D5% in Water 1,000 ML IVC SCH ×2 (03:30→14:17)
[2021-03-22] MEDS ORDERED: Haloperidol Lactate 5 MG/ML VIAL IVP ONE (04:13)
[2021-03-22] MEDS ORDERED: Insulin LISPRO 300 UNITS/3 ML VIAL SUBQ SCH (07:30)
[2021-03-22] MEDS ORDERED: Potassium Chloride Elixir 20 MEQ/15 ML UDC PO ONE (07:32)
[2021-03-22] MEDS: *HR* LORazepam 1 MG TABLET PO SCH ×3 (08:18→22:47)
[2021-03-22 09:33] LABS: BUN/Creatinine Ratio 7 (6-26); Blood Urea Nitrogen 8 mg/dL (8-23); Calcium 9.8 mg/dL (8.6-10.3); Carbon Dioxide 25 mEq/L (23-29); Chloride 119 mEq/L (98-107); Glucose 120 mg/dL (70-105); Osmolality,Calculated 312 (280-300); Potassium 3.3 mEq/L (3.5-5.1); Sodium 151 mEq/L (136-145); eGFR For African Americans > 60 (> 60); eGFR For Non-African Americans > 60 (> 60)
[2021-03-22] MEDS: Heparin 25,000UNIT/250ML 1/2NS 25,000 UNIT/250 ML IV.SOLN IVC SCH (13:03)
[2021-03-22 15:00] LABS: BUN/Creatinine Ratio 6 (6-26); Blood Urea Nitrogen 7 mg/dL (8-23); Calcium 9.5 mg/dL (8.6-10.3); Carbon Dioxide 24 mEq/L (23-29); Chloride 119 mEq/L (98-107); Glucose 73 mg/dL (70-105); Magnesium 1.6 mg/dL (1.6-2.6); Osmolality,Calculated 309 (280-300); Phosphorous 3.7 mg/dL (2.7-4.5); Potassium 3.7 mEq/L (3.5-5.1); Sodium 151 mEq/L (136-145); eGFR For African Americans > 60 (> 60); eGFR For Non-African Americans > 60 (> 60)
[2021-03-22] MEDS ORDERED: Magnesium Sulfate 1 GM/102 ML PIGGYBACK IVPB ONE (16:15)
[2021-03-22] MEDS ORDERED: *HR* LORazepam 2 MG/ML VIAL IM STA (19:09)
[2021-03-22 19:47] LABS: BUN/Creatinine Ratio 8 (6-26); Blood Urea Nitrogen 9 mg/dL (8-23); Calcium 9.1 mg/dL (8.6-10.3); Carbon Dioxide 24 mEq/L (23-29); Chloride 115 mEq/L (98-107); Glucose 74 mg/dL (70-105); Osmolality,Calculated 301 (280-300); Potassium 3.6 mEq/L (3.5-5.1); Sodium 147 mEq/L (136-145); eGFR For African Americans > 60 (> 60); eGFR For Non-African Americans > 60 (> 60)
[2021-03-22] MEDS ORDERED: Topiramate 100 MG TABLET PO SCH (20:00)
[2021-03-22] MEDS ORDERED: OXcarbazepine 150 MG TABLET PO SCH (21:30)
[2021-03-22] MEDS: Topiramate 100 MG TABLET PO SCH ×2 (22:48→22:52)
[2021-03-22] MEDS: levETIRAcetam 250 MG TABLET PO SCH (22:48)
[2021-03-23] MEDS: levETIRAcetam 250 MG TABLET PO SCH (06:27)
[2021-03-23] MEDS: *HR* LORazepam 1 MG TABLET PO SCH (06:43)
[2021-03-23 08:47] LABS: BUN/Creatinine Ratio 7 (6-26); Blood Urea Nitrogen 7 mg/dL (8-23); Calcium 8.9 mg/dL (8.6-10.3); Carbon Dioxide 25 mEq/L (23-29); Chloride 114 mEq/L (98-107); Glucose 103 mg/dL (70-105); Osmolality,Calculated 298 (280-300); Potassium 3.5 mEq/L (3.5-5.1); Sodium 145 mEq/L (136-145); eGFR For African Americans > 60 (> 60); eGFR For Non-African Americans > 60 (> 60)
[2021-03-23] MEDS: Topiramate 100 MG TABLET PO SCH (12:04)
[2021-03-23 13:05] LABS: BUN/Creatinine Ratio 7 (6-26); Blood Urea Nitrogen 7 mg/dL (8-23); Calcium 8.9 mg/dL (8.6-10.3); Carbon Dioxide 23 mEq/L (23-29); Chloride 114 mEq/L (98-107); Glucose 105 mg/dL (70-105); Osmolality,Calculated 296 (280-300); Potassium 3.4 mEq/L (3.5-5.1); Sodium 144 mEq/L (136-145); eGFR For African Americans > 60 (> 60); eGFR For Non-African Americans > 60 (> 60)
[2021-03-23 13:54] VITALS: BP 162/102
[2021-03-23] MEDS: D5% in Water 1,000 ML IVC SCH (14:21)
== END 2021-03-23 16:26 | disposition home or self-care (01) | DRG 134 ==
LOC: SUATTDRO → 2NENU 13:40 → EMEROOARM 13:40 → OBSVTOIN 19:50 → SUATTDRO 19:50 → 2NENU 20:37
PROVIDERS: ADMIT Internal Medicine; ATTEND Internal Medicine

== ENCOUNTER 2021-11-03 10:01 | Inpatient (IN) ==
[2021-11-03] MEDS ORDERED: 0.9 % Sodium Chloride 1,000 ML IVC ONE ×2 (10:17→11:19)
[2021-11-03 11:39] LABS: Bilirubin,Urine Negative (Negative); Blood,Urine Small (Negative); Clarity,Urine Clear (Clear); Color,Urine Yellow (Yellow); Glucose,Urine (UA) Normal (Normal); Hyaline Casts,Urine Few per lpf (None Seen); Ketones,Urine Negative (Negative); Leukocyte Esterase,Urine Negative (Negative); Mucus,Urine Few per lpf (None-Few); Nitrite,Urine Negative (Negative); Protein,Urine 30 mg/dL (Neg-Trace); Specific Gravity,Urine 1.019 (1.010-1.025); Urobilinogen,Urine Normal (Normal); WBC,Urine 0-3 per hpf (0-3)
[2021-11-03 11:47] LABS: Basophils % 0.2 %; Eosinophils % 0.4 %; Hemoglobin 13.1 g/dL (12.9-16.9); Mean Corpuscular Hemoglobin 30.3 pg (28.0-33.3); Mean Corpuscular Volume 96.3 fL (83.0-100.0); Red Cell Distribution Width 12.7 % (11.5-14.5)
[2021-11-03 11:48] LABS: Hematocrit 41.7 % (37.5-50.1); Immature Granulocytes % 0.7 % (0-4); Immature Platelets 2.7 % (1.1-6.1); Lymphocytes # 0.6 K/mcL (0.6-4.6); Lymphocytes % 12.1 %; Mean Corpuscular HGB Conc 31.4 g/dL (31.6-35.5); Mean Platelet Volume 11.2 fL (9.4-12.4); Monocytes # 0.8 K/mcL (0.0-1.3); Monocytes % 16.9 %; Neutrophils # 3.2 K/mcL (1.6-8.9); Red Blood Count 4.33 M/mcL (4.19-5.50); Segmented Neutrophils % 69.7 %; White Blood Count 4.6 K/mcL (4.3-11.1)
[2021-11-03 11:56] LABS: INR 1.8; Prothrombin Time 19.8 Seconds (9.4-12.1)
[2021-11-03 11:59] LABS: Activated Partial Thrombo Time 40.9 Seconds (26.0-36.0)
[2021-11-03 12:01] LABS: Platelet Count 83 K/mcL (140-400)
[2021-11-03 12:02] LABS: Amphetamine Screen,Urine Negative ng/mL (Cutoff=1000); Barbiturate Screen,Urine Negative ng/mL (Cutoff=200); Benzodiazepines Screen,Urine Negative ng/mL (Cutoff=200); Cannabinoid Screen,Urine Negative ng/mL (Cutoff = 50); Cocaine Screen,Urine Negative ng/mL (Cutoff= 300); Opiate Screen,Urine Negative ng/mL (Cutoff=300); Phencyclidine Screen,Urine Negative ng/mL (Cutoff=25)
[2021-11-03 12:02] LABS: Platelet Estimate Decreased (Normal)
[2021-11-03 12:04] LABS: Alanine Aminotransferase 9 Units/L (7-52); Albumin 3.8 g/dL (3.5-5.7); Alkaline Phosphatase 88 Units/L (34-104); Aspartate Amino Transferase 17 Units/L (13-39); BUN/Creatinine Ratio 11 (6-26); Bilirubin,Direct 0.1 mg/dL (0.0-0.2); Bilirubin,Indirect 0.4 mg/dL (0.0-1.0); Bilirubin,Total 0.5 mg/dL (0.3-1.0); Blood Urea Nitrogen 16 mg/dL (8-23); Calcium 9.5 mg/dL (8.6-10.3); Carbon Dioxide 24 mEq/L (23-29); Chloride 125 mEq/L (98-107); Creatine Kinase 152 Units/L (30-223); Ethanol < 10 mg/dL (Less than 10); Globulin 3.7 g/dL (2.4-3.5); Glucose 115 mg/dL (70-105); Osmolality,Calculated 322 (280-300); Potassium 3.6 mEq/L (3.5-5.1); Sodium 155 mEq/L (136-145); Total Protein 7.5 g/dL (6.4-8.9); Troponin I < 0.03 ng/mL (< 0.04); eGFR For African Americans > 60 (> 60); eGFR For Non-African Americans 51 (> 60)
[2021-11-03] MEDS ORDERED: Naloxone 0.4 MG/ML INJ IVP PRN (12:21)
[2021-11-03] MEDS ORDERED: Acetaminophen 325 MG TABLET PO PRN (12:21)
[2021-11-03] MEDS ORDERED: Ondansetron 4 MG/2 ML VIAL IVP PRN (12:21)
[2021-11-03] MEDS ORDERED: D5% in Water 1,000 ML IVC SCH ×2 (12:45→21:30)
[2021-11-03] MEDS: *HR* Enoxaparin 80 MG/0.8 ML SYRINGE SQ SCH (18:50)
[2021-11-03] MEDS: levETIRAcetam 250 MG in 0.9 % Sodium Chloride 100 ML IVPB SCH (21:24)
[2021-11-04 01:34] LABS: Basophils % 0.3 %; Hemoglobin 12.3 g/dL (12.9-16.9); Red Cell Distribution Width 12.7 % (11.5-14.5)
[2021-11-04 01:36] LABS: Eosinophils # 0.1 K/mcL (0.0-0.6); Eosinophils % 2.2 %; Hematocrit 39.3 % (37.5-50.1); Immature Granulocytes % 0.5 % (0-4); Immature Platelets 2.8 % (1.1-6.1); Lymphocytes # 0.8 K/mcL (0.6-4.6); Lymphocytes % 21.6 %; Mean Corpuscular HGB Conc 31.3 g/dL (31.6-35.5); Mean Corpuscular Hemoglobin 30.1 pg (28.0-33.3); Mean Corpuscular Volume 96.1 fL (83.0-100.0); Mean Platelet Volume 11.2 fL (9.4-12.4); Monocytes # 0.6 K/mcL (0.0-1.3); Monocytes % 15.4 %; Neutrophils # 2.2 K/mcL (1.6-8.9); Red Blood Count 4.09 M/mcL (4.19-5.50); White Blood Count 3.7 K/mcL (4.3-11.1)
[2021-11-04 01:39] LABS: Platelet Count 83 K/mcL (140-400)
[2021-11-04 02:02] LABS: BUN/Creatinine Ratio 12 (6-26); Blood Urea Nitrogen 13 mg/dL (8-23); Calcium 8.3 mg/dL (8.6-10.3); Carbon Dioxide 22 mEq/L (23-29); Chloride 123 mEq/L (98-107); Glucose 97 mg/dL (70-105); Magnesium 1.7 mg/dL (1.6-2.6); Osmolality,Calculated 312 (280-300); Potassium 3.4 mEq/L (3.5-5.1); Sodium 151 mEq/L (136-145); eGFR For African Americans > 60 (> 60); eGFR For Non-African Americans > 60 (> 60)
[2021-11-04] MEDS ORDERED: *HR* Enoxaparin 40 MG/0.4 ML SYRINGE SQ SCH (06:00)
[2021-11-04] MEDS: *HR* Enoxaparin 80 MG/0.8 ML SYRINGE SQ SCH (06:34)
[2021-11-04] MEDS: levETIRAcetam 250 MG in 0.9 % Sodium Chloride 100 ML IVPB SCH ×2 (08:49→21:54)
[2021-11-04] MEDS: Potassium Chloride 20 MEQ in D5% in Water 1,000 ML IVC SCH ×2 (09:33→21:53)
[2021-11-04] MEDS: QUEtiapine Fumarate 100 MG TABLET PO SCH ×2 (14:17→21:28)
[2021-11-04] MEDS: *HR* LORazepam 1 MG TABLET PO SCH ×2 (14:17→21:28)
[2021-11-04] MEDS: chlorproMAZINE 25 MG TABLET PO SCH ×2 (15:44→21:28)
[2021-11-04] MEDS ORDERED: OXcarbazepine 150 MG TABLET PO SCH (18:00)
[2021-11-04] MEDS ORDERED: QUEtiapine Fumarate 100 MG TABLET PO SCH (21:00)
[2021-11-04] MEDS: Topiramate 100 MG TABLET PO SCH ×2 (21:27→21:28)
[2021-11-04] MEDS: Apixaban 5 MG TABLET PO SCH (21:28)
[2021-11-04] MEDS: levETIRAcetam 250 MG TABLET PO SCH (21:28)
[2021-11-04] MEDS: Lactulose Oral Soln 20 GM/30 ML UDC PO SCH (21:28)
[2021-11-05 00:56] LABS: BUN/Creatinine Ratio 11 (6-26); Blood Urea Nitrogen 10 mg/dL (8-23); Calcium 7.9 mg/dL (8.6-10.3); Carbon Dioxide 24 mEq/L (23-29); Chloride 114 mEq/L (98-107); Glucose 96 mg/dL (70-105); Osmolality,Calculated 297 (280-300); Potassium 3.4 mEq/L (3.5-5.1); Sodium 144 mEq/L (136-145); eGFR For African Americans > 60 (> 60); eGFR For Non-African Americans > 60 (> 60)
[2021-11-05 08:42] VITALS: BP 137/87; PULSE 86; TEMP 99.2; O2SAT 95
[2021-11-05] MEDS: levETIRAcetam 250 MG in 0.9 % Sodium Chloride 100 ML IVPB SCH (09:11)
[2021-11-05] MEDS: Lactulose Oral Soln 20 GM/30 ML UDC PO SCH (09:11)
[2021-11-05] MEDS: *HR* LORazepam 1 MG TABLET PO SCH ×2 (09:12→15:09)
[2021-11-05] MEDS: chlorproMAZINE 25 MG TABLET PO SCH ×2 (09:12→15:09)
[2021-11-05] MEDS: Apixaban 5 MG TABLET PO SCH (09:12)
[2021-11-05] MEDS: levETIRAcetam 250 MG TABLET PO SCH (09:12)
[2021-11-05] MEDS: QUEtiapine Fumarate 100 MG TABLET PO SCH ×2 (09:12→15:09)
[2021-11-05] MEDS: Topiramate 100 MG TABLET PO SCH ×2 (09:12→09:14)
== END 2021-11-05 15:31 | disposition home or self-care (01) | DRG 426 ==
LOC: EMEROOARM 10:01 → 3NENU 10:01 → SUATTDRO 11-04 08:54
PROVIDERS: ADMIT Hospitalist; ATTEND Internal Medicine

== ENCOUNTER 2022-02-04 09:22 | Inpatient (IN) ==
[2022-02-04] MEDS ORDERED: 0.9 % Sodium Chloride 1,000 ML IVC ONE (10:01)
[2022-02-04 10:29] LABS: Basophils % 0.3 %; Red Cell Distribution Width 13.2 % (11.5-14.5)
[2022-02-04 10:31] LABS: Eosinophils # 0.1 K/mcL (0.0-0.6); Eosinophils % 1.5 %; Hemoglobin 14.8 g/dL (12.9-16.9); Immature Granulocytes % 0.5 % (0-4); Immature Platelets 3.9 % (1.1-6.1); Lymphocytes # 0.7 K/mcL (0.6-4.6); Lymphocytes % 11.9 %; Mean Corpuscular HGB Conc 31.5 g/dL (31.6-35.5); Mean Corpuscular Hemoglobin 30.1 pg (28.0-33.3); Mean Corpuscular Volume 95.7 fL (83.0-100.0); Mean Platelet Volume 11.8 fL (9.4-12.4); Monocytes # 0.4 K/mcL (0.0-1.3); Monocytes % 6.9 %; Neutrophils # 4.7 K/mcL (1.6-8.9); Platelet Count 98 K/mcL (140-400); Red Blood Count 4.91 M/mcL (4.19-5.50); Segmented Neutrophils % 78.9 %; White Blood Count 5.9 K/mcL (4.3-11.1)
[2022-02-04 10:52] LABS: Alanine Aminotransferase 10 Units/L (7-52); Albumin 3.8 g/dL (3.5-5.7); Albumin/Globulin Ratio 1.1 (1.1-2.2); Alkaline Phosphatase 97 Units/L (34-104); Aspartate Amino Transferase 19 Units/L (13-39); BUN/Creatinine Ratio 7 (6-26); Bilirubin,Direct 0.1 mg/dL (0.0-0.2); Bilirubin,Indirect 0.4 mg/dL (0.0-1.0); Bilirubin,Total 0.5 mg/dL (0.3-1.0); Blood Urea Nitrogen 10 mg/dL (8-23); Calcium 10.2 mg/dL (8.6-10.3); Carbon Dioxide 27 mEq/L (23-29); Chloride 122 mEq/L (98-107); Creatine Kinase 139 Units/L (30-223); Ethanol < 10 mg/dL (Less than 10); Globulin 3.4 g/dL (2.4-3.5); Glucose 115 mg/dL (70-105); Osmolality,Calculated 320 (280-300); Potassium 3.6 mEq/L (3.5-5.1); Sodium 155 mEq/L (136-145); Total Protein 7.2 g/dL (6.4-8.9); Troponin I < 0.03 ng/mL (< 0.04); eGFR For African Americans > 60 (> 60); eGFR For Non-African Americans 50 (> 60)
[2022-02-04 11:00] LABS: Amphetamine Screen,Urine Negative ng/mL (Cutoff=1000); Barbiturate Screen,Urine Negative ng/mL (Cutoff=200); Benzodiazepines Screen,Urine Negative ng/mL (Cutoff=200); Bilirubin,Urine Small (Negative); Blood,Urine Negative (Negative); Cannabinoid Screen,Urine Negative ng/mL (Cutoff = 50); Clarity,Urine Clear (Clear); Cocaine Screen,Urine Negative ng/mL (Cutoff= 300); Color,Urine Yellow (Yellow); Glucose,Urine (UA) Normal (Normal); Hyaline Casts,Urine Few per lpf (None Seen); Ketones,Urine Negative (Negative); Leukocyte Esterase,Urine Trace (Negative); Mucus,Urine Few per lpf (None-Few); Nitrite,Urine Positive (Negative); Opiate Screen,Urine Negative ng/mL (Cutoff=300); PH,Urine 6.5 pH Units (5.0-8.0); Phencyclidine Screen,Urine Negative ng/mL (Cutoff=25); Protein,Urine 30 mg/dL (Neg-Trace); Specific Gravity,Urine 1.018 (1.010-1.025); Urobilinogen,Urine Normal (Normal)
[2022-02-04 11:04] LABS: Thyroid Stimulating Hormone 1.211 mcIU/mL (0.340-5.600)
[2022-02-04] MEDS ORDERED: 0.9 % Sodium Chloride 1,000 ML IVC SCH (12:00)
[2022-02-04] MEDS ORDERED: cefTRIAXone 1,000 MG in 0.9 % Sodium Chloride Mini Bag 100 ML IVPB SCH (13:00)
[2022-02-04] MEDS ORDERED: Naloxone 0.4 MG/ML INJ IVP PRN (13:19)
[2022-02-04] MEDS ORDERED: Acetaminophen 325 MG TABLET PO PRN (13:19)
[2022-02-04] MEDS ORDERED: Desitin (Zinc Oxide) 56 GM TUBE TP PRN (13:21)
[2022-02-04] MEDS ORDERED: Bisacodyl 10 MG RECTAL SUPPOSITORY RC PRN (13:21)
[2022-02-04] MEDS ORDERED: Mag Hydrox/Al Hydrox/Simeth 30 ML UDC PO PRN (14:34)
[2022-02-04] MEDS ORDERED: QUEtiapine Fumarate 100 MG TABLET PO SCH (15:00)
[2022-02-04] MEDS: *HR* LORazepam 1 MG TABLET PO SCH ×2 (15:22→21:46)
[2022-02-04] MEDS: QUEtiapine Fumarate 100 MG TABLET PO SCH ×2 (15:22→21:47)
[2022-02-04] MEDS: Dorzolamide/Timolol OPTH 10 ML BOTTLE BOTH EYES SCH ×2 (15:23→21:44)
[2022-02-04] MEDS: Artificial Tears SOLN 15 ML BOTTLE BOTH EYES SCH ×2 (15:24→21:48)
[2022-02-04] MEDS: Ammonium Lactate 30 APPL/225 GM BOTTLE TP SCH (15:24)
[2022-02-04] MEDS: chlorproMAZINE 25 MG TABLET PO SCH ×2 (16:45→22:08)
[2022-02-04] MEDS: D5% in Water 1,000 ML IVC SCH (18:51)
[2022-02-04] MEDS ORDERED: TOPIRAMATE 200 MG PO SCH (20:00)
[2022-02-04] MEDS: Eucerin Cream 57 GM TUBE TP SCH ×2 (21:45→22:22)
[2022-02-04] MEDS: Latanoprost 2.5 ML BOTTLE BOTH EYES SCH (21:45)
[2022-02-04] MEDS: Topiramate 100 MG TABLET PO SCH (21:46)
[2022-02-04] MEDS: Melatonin 3 MG TABLET PO SCH (21:46)
[2022-02-04] MEDS: Lactulose Oral Soln 20 GM/30 ML UDC PO SCH (21:46)
[2022-02-04] MEDS: OXcarbazepine 150 MG TABLET PO SCH (21:46)
[2022-02-04] MEDS: QUEtiapine Fumarate 300 MG TABLET PO SCH (21:47)
[2022-02-04] MEDS: levETIRAcetam 250 MG TABLET PO SCH (21:47)
[2022-02-04] MEDS: Apixaban 5 MG TABLET PO SCH (21:48)
[2022-02-04] MEDS: Valbenazine Tosylate [Ingrezza] 80 MG Capsule PO SCH (21:49)
[2022-02-05 01:16] LABS: Red Cell Distribution Width 13.2 % (11.5-14.5)
[2022-02-05 01:18] LABS: Hematocrit 40.6 % (37.5-50.1); Hemoglobin 12.7 g/dL (12.9-16.9); Immature Platelets 3.4 % (1.1-6.1); Mean Corpuscular HGB Conc 31.3 g/dL (31.6-35.5); Mean Corpuscular Hemoglobin 29.7 pg (28.0-33.3); Mean Corpuscular Volume 95.1 fL (83.0-100.0); Mean Platelet Volume 11.2 fL (9.4-12.4); Red Blood Count 4.27 M/mcL (4.19-5.50)
[2022-02-05 01:37] LABS: BUN/Creatinine Ratio 8 (6-26); Blood Urea Nitrogen 9 mg/dL (8-23); Calcium 9.1 mg/dL (8.6-10.3); Carbon Dioxide 25 mEq/L (23-29); Chloride 125 mEq/L (98-107); Glucose 99 mg/dL (70-105); Magnesium 1.7 mg/dL (1.6-2.6); Osmolality,Calculated 321 (280-300); Potassium 3.5 mEq/L (3.5-5.1); Sodium 156 mEq/L (136-145); eGFR For African Americans > 60 (> 60); eGFR For Non-African Americans > 60 (> 60)
[2022-02-05 02:34] LABS: Hepatitis B Surface Antibody < 3.10 mIU/mL
[2022-02-05 02:45] LABS: Hepatitis B Surface Antigen Nonreactive (Nonreactive)
[2022-02-05] MEDS: cefTRIAXone 1,000 MG in 0.9 % Sodium Chloride 10 ML IVP SCH (08:20)
[2022-02-05] MEDS: Cholecalciferol (D-3) 1,000 UNIT (25MCG) TABLET PO SCH ×2 (08:21→08:29)
[2022-02-05] MEDS: QUEtiapine Fumarate 100 MG TABLET PO SCH ×3 (08:21→21:41)
[2022-02-05] MEDS: Topiramate 100 MG TABLET PO SCH ×2 (08:28→21:40)
[2022-02-05] MEDS: Lactulose Oral Soln 20 GM/30 ML UDC PO SCH ×2 (08:28→21:43)
[2022-02-05] MEDS: Multivit/Ca/Min/Fe/FA 1 TAB TABLET PO SCH (08:28)
[2022-02-05] MEDS: *HR* LORazepam 1 MG TABLET PO SCH ×3 (08:28→21:41)
[2022-02-05] MEDS: polyethylene glycoL 3350 17 GM POWD.PACK PO SCH (08:28)
[2022-02-05] MEDS: levETIRAcetam 250 MG TABLET PO SCH ×2 (08:29→21:41)
[2022-02-05] MEDS: chlorproMAZINE 25 MG TABLET PO SCH ×3 (08:29→21:42)
[2022-02-05] MEDS: Apixaban 5 MG TABLET PO SCH ×2 (08:33→21:42)
[2022-02-05] MEDS: Dorzolamide/Timolol OPTH 10 ML BOTTLE BOTH EYES SCH ×3 (08:34→21:42)
[2022-02-05] MEDS: Artificial Tears SOLN 15 ML BOTTLE BOTH EYES SCH ×3 (08:34→21:42)
[2022-02-05] MEDS: D5% in Water 1,000 ML IVC SCH ×2 (08:35→21:46)
[2022-02-05] MEDS: Eucerin Cream 57 GM TUBE TP SCH ×2 (08:35→21:43)
[2022-02-05] MEDS ORDERED: NON-FORMULARY MEDICATION 1 EACH EACH PO SCH (20:00)
[2022-02-05] MEDS: OXcarbazepine 150 MG TABLET PO SCH (21:41)
[2022-02-05] MEDS: QUEtiapine Fumarate 300 MG TABLET PO SCH (21:41)
[2022-02-05] MEDS: Melatonin 3 MG TABLET PO SCH (21:42)
[2022-02-05] MEDS: Valbenazine Tosylate [Ingrezza] 80 MG Capsule PO SCH (21:42)
[2022-02-05] MEDS: Latanoprost 2.5 ML BOTTLE BOTH EYES SCH (21:43)
[2022-02-05] MEDS ORDERED: *HR* Labetalol 20 MG/4 ML SYRINGE IVP PRN (22:43)
[2022-02-06] MEDS: Lactulose Oral Soln 20 GM/30 ML UDC PO SCH ×2 (08:22→19:57)
[2022-02-06] MEDS: Topiramate 100 MG TABLET PO SCH ×2 (08:22→19:58)
[2022-02-06] MEDS: Cholecalciferol (D-3) 1,000 UNIT (25MCG) TABLET PO SCH ×2 (08:23)
[2022-02-06] MEDS: chlorproMAZINE 25 MG TABLET PO SCH ×3 (08:23→19:59)
[2022-02-06] MEDS: levETIRAcetam 250 MG TABLET PO SCH ×2 (08:23→20:00)
[2022-02-06] MEDS: *HR* LORazepam 1 MG TABLET PO SCH ×3 (08:23→19:59)
[2022-02-06] MEDS: QUEtiapine Fumarate 100 MG TABLET PO SCH ×3 (08:23→19:59)
[2022-02-06] MEDS: Apixaban 5 MG TABLET PO SCH ×2 (08:23→19:58)
[2022-02-06] MEDS: Dorzolamide/Timolol OPTH 10 ML BOTTLE BOTH EYES SCH ×3 (08:24→20:01)
[2022-02-06] MEDS: cefTRIAXone 1,000 MG in 0.9 % Sodium Chloride 10 ML IVP SCH (08:24)
[2022-02-06] MEDS: Eucerin Cream 57 GM TUBE TP SCH ×2 (08:25→20:01)
[2022-02-06] MEDS: Multivit/Ca/Min/Fe/FA 1 TAB TABLET PO SCH (08:25)
[2022-02-06] MEDS: Artificial Tears SOLN 15 ML BOTTLE BOTH EYES SCH ×3 (08:25→20:00)
[2022-02-06] MEDS: polyethylene glycoL 3350 17 GM POWD.PACK PO SCH (08:25)
[2022-02-06 09:09] LABS: Hematocrit 41.2 % (37.5-50.1); Hemoglobin 13.2 g/dL (12.9-16.9); Immature Platelets 5.5 % (1.1-6.1); Mean Corpuscular Volume 93.6 fL (83.0-100.0); Mean Platelet Volume 11.8 fL (9.4-12.4); Red Blood Count 4.4 M/mcL (4.19-5.50); Red Cell Distribution Width 12.9 % (11.5-14.5); White Blood Count 3.8 K/mcL (4.3-11.1)
[2022-02-06 09:31] LABS: BUN/Creatinine Ratio 12 (6-26); Blood Urea Nitrogen 12 mg/dL (8-23); Calcium 8.4 mg/dL (8.6-10.3); Carbon Dioxide 26 mEq/L (23-29); Chloride 117 mEq/L (98-107); Glucose 80 mg/dL (70-105); Osmolality,Calculated 305 (280-300); Potassium 3.4 mEq/L (3.5-5.1); Sodium 148 mEq/L (136-145); eGFR For African Americans > 60 (> 60); eGFR For Non-African Americans > 60 (> 60)
[2022-02-06] MEDS: D5% in Water 1,000 ML IVC SCH (11:37)
[2022-02-06 14:42] LABS: Potassium,Urine 29.7 mEq/L; Protein/Creatinine Ratio,Urine 0.34 mg/mg (0.00-0.20); Sodium, Urine 76.4 mEq/L
[2022-02-06 15:22] LABS: Total Volume 24 Hour,Urine 1.23 Liters (0.80-1.80)
[2022-02-06] MEDS: OXcarbazepine 150 MG TABLET PO SCH (19:57)
[2022-02-06] MEDS: Melatonin 3 MG TABLET PO SCH (19:58)
[2022-02-06] MEDS: QUEtiapine Fumarate 300 MG TABLET PO SCH (19:59)
[2022-02-06] MEDS: Latanoprost 2.5 ML BOTTLE BOTH EYES SCH (20:00)
[2022-02-06] MEDS: Valbenazine Tosylate [Ingrezza] 80 MG Capsule PO SCH (20:01)
[2022-02-07] MEDS: D5% in Water 1,000 ML IVC SCH ×2 (01:46→13:45)
[2022-02-07 03:29] LABS: Hematocrit 39.5 % (37.5-50.1); Hemoglobin 13.5 g/dL (12.9-16.9); Immature Platelets 5.8 % (1.1-6.1); Mean Corpuscular HGB Conc 34.2 g/dL (31.6-35.5); Mean Corpuscular Hemoglobin 30.9 pg (28.0-33.3); Mean Corpuscular Volume 90.4 fL (83.0-100.0); Mean Platelet Volume 12.3 fL (9.4-12.4); Red Blood Count 4.37 M/mcL (4.19-5.50); Red Cell Distribution Width 12.7 % (11.5-14.5); White Blood Count 4.6 K/mcL (4.3-11.1)
[2022-02-07 03:52] LABS: BUN/Creatinine Ratio 11 (6-26); Blood Urea Nitrogen 9 mg/dL (8-23); Calcium 8.3 mg/dL (8.6-10.3); Carbon Dioxide 20 mEq/L (23-29); Chloride 115 mEq/L (98-107); Glucose 97 mg/dL (70-105); Magnesium 1.7 mg/dL (1.6-2.6); Osmolality,Calculated 293 (280-300); Phosphorous 2.9 mg/dL (2.7-4.5); Potassium 3.9 mEq/L (3.5-5.1); Sodium 142 mEq/L (136-145); eGFR For African Americans > 60 (> 60); eGFR For Non-African Americans > 60 (> 60)
[2022-02-07 08:24] VITALS: TEMP 97.9; O2SAT 98
[2022-02-07] MEDS: Lactulose Oral Soln 20 GM/30 ML UDC PO SCH (08:26)
[2022-02-07] MEDS: Dorzolamide/Timolol OPTH 10 ML BOTTLE BOTH EYES SCH ×2 (08:26→13:46)
[2022-02-07] MEDS: cefTRIAXone 1,000 MG in 0.9 % Sodium Chloride 10 ML IVP SCH (08:26)
[2022-02-07] MEDS: Artificial Tears SOLN 15 ML BOTTLE BOTH EYES SCH ×2 (08:26→13:57)
[2022-02-07] MEDS: polyethylene glycoL 3350 17 GM POWD.PACK PO SCH (08:27)
[2022-02-07] MEDS: Topiramate 100 MG TABLET PO SCH (08:27)
[2022-02-07] MEDS: Cholecalciferol (D-3) 1,000 UNIT (25MCG) TABLET PO SCH ×2 (08:27→08:28)
[2022-02-07] MEDS: Apixaban 5 MG TABLET PO SCH (08:27)
[2022-02-07] MEDS: Multivit/Ca/Min/Fe/FA 1 TAB TABLET PO SCH (08:28)
[2022-02-07] MEDS: QUEtiapine Fumarate 100 MG TABLET PO SCH ×2 (08:28→13:45)
[2022-02-07] MEDS: levETIRAcetam 250 MG TABLET PO SCH (08:28)
[2022-02-07] MEDS: Eucerin Cream 57 GM TUBE TP SCH (08:28)
[2022-02-07] MEDS: *HR* LORazepam 1 MG TABLET PO SCH ×2 (08:28→13:45)
[2022-02-07] MEDS: chlorproMAZINE 25 MG TABLET PO SCH ×2 (08:28→13:45)
[2022-02-07 11:14] VITALS: BP 100/74; PULSE 81
[2022-02-07] MEDS: Ammonium Lactate 30 APPL/225 GM BOTTLE TP SCH (13:45)
== END 2022-02-07 15:15 | disposition other institution (70) | DRG 469 ==
LOC: EMEROOARM 09:22 → 2NENU 09:22
PROVIDERS: ADMIT Internal Medicine; ATTEND Internal Medicine

== ENCOUNTER 2022-02-28 08:44 | Inpatient (IN) ==
[2022-02-28] MEDS ORDERED: 0.9 % Sodium Chloride 1,000 ML IVC ONE (09:07)
[2022-02-28 09:43] LABS: Basophils % 0.2 %; Eosinophils % 0.2 %; Red Cell Distribution Width 14.2 % (11.5-14.5)
[2022-02-28 09:45] LABS: Hematocrit 44.1 % (37.5-50.1); Immature Granulocytes % 3.2 % (0-4); Immature Platelets 3.5 % (1.1-6.1); Lymphocytes # 0.7 K/mcL (0.6-4.6); Lymphocytes % 3.9 %; Mean Corpuscular HGB Conc 31.7 g/dL (31.6-35.5); Mean Corpuscular Hemoglobin 30.7 pg (28.0-33.3); Mean Corpuscular Volume 96.7 fL (83.0-100.0); Mean Platelet Volume 11.5 fL (9.4-12.4); Monocytes # 1.4 K/mcL (0.0-1.3); Monocytes % 7.9 %; Platelet Count 126 K/mcL (140-400); Red Blood Count 4.56 M/mcL (4.19-5.50); Segmented Neutrophils % 84.6 %; White Blood Count 17.8 K/mcL (4.3-11.1)
[2022-02-28 09:46] LABS: Neutrophils # 15.1 K/mcL (1.6-8.9)
[2022-02-28 09:51] LABS: Prothrombin Time 21.7 Seconds (9.4-12.1)
[2022-02-28 10:08] LABS: Bilirubin,Urine Negative (Negative); Blood,Urine Negative (Negative); Clarity,Urine Clear (Clear); Color,Urine Yellow (Yellow); Glucose,Urine (UA) Normal (Normal); Hyaline Casts,Urine Few per lpf (None Seen); Ketones,Urine Negative (Negative); Leukocyte Esterase,Urine Trace (Negative); Mucus,Urine Few per lpf (None-Few); Nitrite,Urine Positive (Negative); Protein,Urine 30 mg/dL (Neg-Trace); RBC,Urine 0-3 per hpf (0-3); Specific Gravity,Urine 1.019 (1.010-1.025); Squamous Epithelial Cell,Urine Few per hpf (None-Few); Urobilinogen,Urine Normal (Normal)
[2022-02-28 10:09] LABS: Alanine Aminotransferase 11 Units/L (7-52); Albumin 3.5 g/dL (3.5-5.7); Albumin/Globulin Ratio 0.9 (1.1-2.2); Alkaline Phosphatase 120 Units/L (34-104); Aspartate Amino Transferase 15 Units/L (13-39); BUN/Creatinine Ratio 11 (6-26); Bilirubin,Direct 0.3 mg/dL (0.0-0.2); Bilirubin,Indirect 0.4 mg/dL (0.0-1.0); Bilirubin,Total 0.7 mg/dL (0.3-1.0); Blood Urea Nitrogen 13 mg/dL (8-23); Calcium 10.1 mg/dL (8.6-10.3); Carbon Dioxide 24 mEq/L (23-29); Chloride 121 mEq/L (98-107); Creatine Kinase 164 Units/L (30-223); Ethanol < 10 mg/dL (Less than 10); Globulin 3.8 g/dL (2.4-3.5); Glucose 131 mg/dL (70-105); Osmolality,Calculated 324 (280-300); Potassium 3.5 mEq/L (3.5-5.1); Sodium 156 mEq/L (136-145); Total Protein 7.3 g/dL (6.4-8.9); Troponin I < 0.03 ng/mL (< 0.04); eGFR For African Americans > 60 (> 60); eGFR For Non-African Americans > 60 (> 60)
[2022-02-28] MEDS ORDERED: Piperacillin/Tazobactam 3.375 GM in 0.9 % Sodium Chloride Mini Bag 100 ML IVPB ONE (10:53)
[2022-02-28] MEDS ORDERED: Naloxone 0.4 MG/ML INJ IVP PRN (12:17)
[2022-02-28] MEDS ORDERED: Acetaminophen 325 MG TABLET PO PRN (12:17)
[2022-02-28] MEDS ORDERED: D5% in Water 1,000 ML IVC SCH (12:30)
[2022-02-28] MEDS ORDERED: diazePAM 5 MG TABLET PO PRN (14:18)
[2022-02-28 14:23] LABS: Sodium, Urine 27.3 mEq/L
[2022-02-28] MEDS ORDERED: QUEtiapine Fumarate 100 MG TABLET PO SCH (15:00)
[2022-02-28] MEDS: *HR* LORazepam 1 MG TABLET PO SCH ×2 (16:05→21:15)
[2022-02-28] MEDS: FLUOCINOLONE ACETONIDE 0.01% TP SCH (16:06)
[2022-02-28] MEDS: chlorproMAZINE 25 MG TABLET PO SCH ×2 (16:06→21:17)
[2022-02-28] MEDS: Piperacillin/Tazobactam 3.375 GM in 0.9 % Sodium Chloride Mini Bag 100 ML IVPB SCH (17:02)
[2022-02-28] MEDS: Dorzolamide/Timolol OPTH 10 ML BOTTLE BOTH EYES SCH ×2 (17:02→21:16)
[2022-02-28] MEDS: OXcarbazepine 150 MG TABLET PO SCH (17:02)
[2022-02-28] MEDS: Artificial Tears SOLN 15 ML BOTTLE BOTH EYES SCH ×2 (17:05→21:19)
[2022-02-28] MEDS ORDERED: TOPIRAMATE 200 MG PO SCH (21:00)
[2022-02-28] MEDS ORDERED: [UNRECOGNIZED DRUG - OTHER] TP SCH (21:00)
[2022-02-28] MEDS ORDERED: LANOLIN TP SCH (21:00)
[2022-02-28] MEDS ORDERED: MINERAL OIL TP SCH (21:00)
[2022-02-28] MEDS ORDERED: levETIRAcetam 250 MG TABLET PO SCH (21:00)
[2022-02-28] MEDS ORDERED: NON-FORMULARY MEDICATION 1 EACH EACH (Quetiapine Fumarate [Seroquel] 400 MG Tablet) PO SCH (21:00)
[2022-02-28] MEDS: Apixaban 5 MG TABLET PO SCH (21:16)
[2022-02-28] MEDS: Melatonin 3 MG TABLET PO SCH (21:17)
[2022-02-28] MEDS: QUEtiapine Fumarate 100 MG TABLET PO SCH (21:17)
[2022-02-28] MEDS: VALBENAZINE TOSYLATE 80 MG PO SCH (21:17)
[2022-02-28] MEDS: Lactulose Oral Soln 20 GM/30 ML UDC PO SCH (21:17)
[2022-02-28] MEDS: Latanoprost 2.5 ML BOTTLE BOTH EYES SCH (21:18)
[2022-02-28] MEDS: Topiramate 100 MG TABLET PO SCH (21:18)
[2022-03-01] MEDS: Piperacillin/Tazobactam 3.375 GM in 0.9 % Sodium Chloride Mini Bag 100 ML IVPB SCH ×3 (00:05→15:35)
[2022-03-01 01:26] LABS: Basophils % 0.2 %; Eosinophils % 0.3 %
[2022-03-01 01:28] LABS: Hematocrit 40.3 % (37.5-50.1); Hemoglobin 12.6 g/dL (12.9-16.9); Immature Granulocytes % 3.6 % (0-4); Immature Platelets 3.8 % (1.1-6.1); Lymphocytes # 0.7 K/mcL (0.6-4.6); Mean Corpuscular HGB Conc 31.3 g/dL (31.6-35.5); Mean Corpuscular Hemoglobin 30.5 pg (28.0-33.3); Mean Corpuscular Volume 97.6 fL (83.0-100.0); Mean Platelet Volume 11.2 fL (9.4-12.4); Monocytes # 1.1 K/mcL (0.0-1.3); Monocytes % 7.9 %; Neutrophils # 11.7 K/mcL (1.6-8.9); Platelet Count 111 K/mcL (140-400); Red Blood Count 4.13 M/mcL (4.19-5.50); White Blood Count 14.1 K/mcL (4.3-11.1)
[2022-03-01 01:42] LABS: BUN/Creatinine Ratio 13 (6-26); Blood Urea Nitrogen 13 mg/dL (8-23); Calcium 8.8 mg/dL (8.6-10.3); Carbon Dioxide 22 mEq/L (23-29); Chloride 123 mEq/L (98-107); Glucose 129 mg/dL (70-105); Magnesium 1.7 mg/dL (1.6-2.6); Osmolality,Calculated 316 (280-300); Phosphorous 2.6 mg/dL (2.7-4.5); Potassium 3.3 mEq/L (3.5-5.1); Sodium 152 mEq/L (136-145); eGFR For African Americans > 60 (> 60); eGFR For Non-African Americans > 60 (> 60)
[2022-03-01] MEDS: chlorproMAZINE 25 MG TABLET PO SCH ×3 (09:03→22:26)
[2022-03-01] MEDS: Apixaban 5 MG TABLET PO SCH ×2 (09:04→22:23)
[2022-03-01] MEDS: polyethylene glycoL 3350 17 GM POWD.PACK PO SCH (09:04)
[2022-03-01] MEDS: *HR* LORazepam 1 MG TABLET PO SCH ×3 (09:04→22:27)
[2022-03-01] MEDS: Cholecalciferol (D-3) 1,000 UNIT (25MCG) TABLET PO SCH (09:04)
[2022-03-01] MEDS: Lactulose Oral Soln 20 GM/30 ML UDC PO SCH ×2 (09:04→22:32)
[2022-03-01] MEDS: amLODIPine 5 MG TABLET PO SCH (09:04)
[2022-03-01] MEDS: Topiramate 100 MG TABLET PO SCH ×2 (09:04→22:26)
[2022-03-01] MEDS: QUEtiapine Fumarate 100 MG TABLET PO SCH ×3 (09:05→22:23)
[2022-03-01] MEDS: Artificial Tears SOLN 15 ML BOTTLE BOTH EYES SCH ×3 (09:29→22:30)
[2022-03-01] MEDS: Dorzolamide/Timolol OPTH 10 ML BOTTLE BOTH EYES SCH ×3 (09:30→22:31)
[2022-03-01 10:23] LABS: Adenovirus Not Detected (Not Detect); Coronavirus 229E Not Detected (Not Detect); Coronavirus HKU1 Not Detected (Not Detect); Coronavirus NL63 Not Detected (Not Detect); Coronavirus OC43 Not Detected (Not Detect); Human Metapneumovirus Not Detected (Not Detect); Human Rhinovirus/Enterovirus Not Detected (Not Detect)
[2022-03-01 10:24] LABS: Bordetella Pertussis Not Detected (Not Detect); Chlamydophila pneumoniae Not Detected (Not Detect); Influenza A Subtype 2009 H1 Not Detected (Not Detect); Influenza B Not Detected (Not Detect); Mycoplasma pneumoniae Not Detected (Not Detect); Parainfluenza Virus 1 Not Detected (Not Detect); Parainfluenza Virus 2 Not Detected (Not Detect); Parainfluenza Virus 3 Not Detected (Not Detect); Parainfluenza Virus 4 Not Detected (Not Detect); Respiratory Syncytial Virus Not Detected (Not Detect); SARS-CoV-2 DETECTED (Not Detect)
[2022-03-01] MEDS: OXcarbazepine 150 MG TABLET PO SCH (15:36)
[2022-03-01] MEDS: Melatonin 3 MG TABLET PO SCH (22:26)
[2022-03-01] MEDS: Latanoprost 2.5 ML BOTTLE BOTH EYES SCH (22:31)
[2022-03-01] MEDS: VALBENAZINE TOSYLATE 80 MG PO SCH (23:44)
[2022-03-02] MEDS: Piperacillin/Tazobactam 3.375 GM in 0.9 % Sodium Chloride Mini Bag 100 ML IVPB SCH ×3 (00:38→17:41)
[2022-03-02 05:52] LABS: Hemoglobin 11.7 g/dL (12.9-16.9)
[2022-03-02 05:54] LABS: Hematocrit 37.6 % (37.5-50.1); Immature Platelets 4.5 % (1.1-6.1); Mean Corpuscular HGB Conc 31.1 g/dL (31.6-35.5); Mean Corpuscular Hemoglobin 30.3 pg (28.0-33.3); Mean Corpuscular Volume 97.4 fL (83.0-100.0); Mean Platelet Volume 11.6 fL (9.4-12.4); Red Blood Count 3.86 M/mcL (4.19-5.50)
[2022-03-02 06:11] LABS: BUN/Creatinine Ratio 11 (6-26); Blood Urea Nitrogen 11 mg/dL (8-23); Calcium 8.9 mg/dL (8.6-10.3); Carbon Dioxide 24 mEq/L (23-29); Chloride 121 mEq/L (98-107); Glucose 94 mg/dL (70-105); Osmolality,Calculated 313 (280-300); Potassium 3.3 mEq/L (3.5-5.1); Sodium 152 mEq/L (136-145); eGFR For African Americans > 60 (> 60); eGFR For Non-African Americans > 60 (> 60)
[2022-03-02] MEDS: Dorzolamide/Timolol OPTH 10 ML BOTTLE BOTH EYES SCH ×2 (07:23→17:41)
[2022-03-02] MEDS: Artificial Tears SOLN 15 ML BOTTLE BOTH EYES SCH ×2 (07:23→17:41)
[2022-03-02] MEDS ORDERED: Potassium Chloride Elixir 20 MEQ/15 ML UDC PO ONE (07:36)
[2022-03-02] MEDS ORDERED: D5% in Water 1,000 ML IVC SCH (07:45)
[2022-03-02] MEDS: Lactulose Oral Soln 20 GM/30 ML UDC PO SCH (09:54)
[2022-03-02] MEDS: polyethylene glycoL 3350 17 GM POWD.PACK PO SCH (09:54)
[2022-03-02] MEDS: chlorproMAZINE 25 MG TABLET PO SCH ×2 (09:55→17:40)
[2022-03-02] MEDS: Apixaban 5 MG TABLET PO SCH (09:55)
[2022-03-02] MEDS: QUEtiapine Fumarate 100 MG TABLET PO SCH ×2 (09:56→17:40)
[2022-03-02] MEDS: amLODIPine 5 MG TABLET PO SCH (09:57)
[2022-03-02] MEDS: *HR* LORazepam 1 MG TABLET PO SCH ×2 (09:57→17:40)
[2022-03-02] MEDS: Cholecalciferol (D-3) 1,000 UNIT (25MCG) TABLET PO SCH (09:57)
[2022-03-02] MEDS: Topiramate 100 MG TABLET PO SCH (09:58)
[2022-03-02] MEDS: FLUOCINOLONE ACETONIDE 0.01% TP SCH (10:15)
[2022-03-02] MEDS: OXcarbazepine 150 MG TABLET PO SCH (17:40)
[2022-03-02] MEDS ORDERED: levETIRAcetam 250 MG TABLET PO SCH (21:00)
[2022-03-03] MEDS: Latanoprost 2.5 ML BOTTLE BOTH EYES SCH ×2 (00:02→22:25)
[2022-03-03] MEDS: Dorzolamide/Timolol OPTH 10 ML BOTTLE BOTH EYES SCH ×4 (00:02→22:23)
[2022-03-03] MEDS: Artificial Tears SOLN 15 ML BOTTLE BOTH EYES SCH ×4 (00:02→22:24)
[2022-03-03] MEDS: Apixaban 5 MG TABLET PO SCH ×3 (00:10→22:12)
[2022-03-03] MEDS: *HR* LORazepam 1 MG TABLET PO SCH ×4 (00:10→22:11)
[2022-03-03] MEDS: Melatonin 3 MG TABLET PO SCH ×2 (00:10→22:17)
[2022-03-03] MEDS: VALBENAZINE TOSYLATE 80 MG PO SCH ×2 (00:10→22:25)
[2022-03-03] MEDS: Lactulose Oral Soln 20 GM/30 ML UDC PO SCH ×3 (00:10→22:28)
[2022-03-03] MEDS: chlorproMAZINE 25 MG TABLET PO SCH ×4 (00:11→22:14)
[2022-03-03] MEDS: QUEtiapine Fumarate 100 MG TABLET PO SCH ×4 (00:11→22:20)
[2022-03-03] MEDS: Topiramate 100 MG TABLET PO SCH ×3 (00:11→22:12)
[2022-03-03] MEDS: levETIRAcetam 250 MG in 0.9 % Sodium Chloride 100 ML IVPB SCH ×3 (00:17→22:05)
[2022-03-03] MEDS: Piperacillin/Tazobactam 3.375 GM in 0.9 % Sodium Chloride Mini Bag 100 ML IVPB SCH ×2 (01:02→10:30)
[2022-03-03 03:06] LABS: Hematocrit 36.5 % (37.5-50.1); Hemoglobin 11.8 g/dL (12.9-16.9); Mean Corpuscular HGB Conc 32.3 g/dL (31.6-35.5); Mean Corpuscular Volume 95.8 fL (83.0-100.0); Mean Platelet Volume 11.9 fL (9.4-12.4); Platelet Count 107 K/mcL (140-400); Red Blood Count 3.81 M/mcL (4.19-5.50); Red Cell Distribution Width 13.9 % (11.5-14.5); White Blood Count 10.4 K/mcL (4.3-11.1)
[2022-03-03 03:27] LABS: BUN/Creatinine Ratio 13 (6-26); Blood Urea Nitrogen 10 mg/dL (8-23); Calcium 8.9 mg/dL (8.6-10.3); Carbon Dioxide 22 mEq/L (23-29); Chloride 120 mEq/L (98-107); Glucose 79 mg/dL (70-105); Magnesium 1.9 mg/dL (1.6-2.6); Osmolality,Calculated 302 (280-300); Phosphorous 3.5 mg/dL (2.7-4.5); Potassium 3.9 mEq/L (3.5-5.1); Sodium 147 mEq/L (136-145); eGFR For African Americans > 60 (> 60); eGFR For Non-African Americans > 60 (> 60)
[2022-03-03 04:51] LABS: Lymphocytes # 1.3 K/mcL (0.6-4.6); Monocytes # 0.4 K/mcL (0.0-1.3); Neutrophils # 7.7 K/mcL (1.6-8.9)
[2022-03-03 04:52] LABS: Platelet Estimate Decreased (Normal)
[2022-03-03] MEDS: Cholecalciferol (D-3) 1,000 UNIT (25MCG) TABLET PO SCH (10:22)
[2022-03-03] MEDS: amLODIPine 5 MG TABLET PO SCH (10:22)
[2022-03-03] MEDS: polyethylene glycoL 3350 17 GM POWD.PACK PO SCH (10:22)
[2022-03-03] MEDS ORDERED: Potassium Chloride 20 MEQ in D5% in Water 1,000 ML IVC SCH (12:30)
[2022-03-03] MEDS ORDERED: D5% in Water 1,000 ML IVC SCH (12:30)
[2022-03-03] MEDS ORDERED: cefTRIAXone 1,000 MG in 0.9 % Sodium Chloride 10 ML IVP SCH (18:00)
[2022-03-03] MEDS: OXcarbazepine 150 MG TABLET PO SCH (18:06)
[2022-03-04 02:57] LABS: BUN/Creatinine Ratio 15 (6-26); Blood Urea Nitrogen 13 mg/dL (8-23); Calcium 8.6 mg/dL (8.6-10.3); Carbon Dioxide 23 mEq/L (23-29); Chloride 117 mEq/L (98-107); Glucose 107 mg/dL (70-105); Osmolality,Calculated 297 (280-300); Potassium 3.7 mEq/L (3.5-5.1); Sodium 143 mEq/L (136-145); eGFR For African Americans > 60 (> 60); eGFR For Non-African Americans > 60 (> 60)
[2022-03-04] MEDS: chlorproMAZINE 25 MG TABLET PO SCH ×2 (10:28→14:44)
[2022-03-04] MEDS: Apixaban 5 MG TABLET PO SCH (10:29)
[2022-03-04] MEDS: QUEtiapine Fumarate 100 MG TABLET PO SCH ×2 (10:29→14:44)
[2022-03-04] MEDS: Cholecalciferol (D-3) 1,000 UNIT (25MCG) TABLET PO SCH (10:29)
[2022-03-04] MEDS: amLODIPine 5 MG TABLET PO SCH (10:29)
[2022-03-04] MEDS: *HR* LORazepam 1 MG TABLET PO SCH ×2 (10:30→14:45)
[2022-03-04] MEDS: Topiramate 100 MG TABLET PO SCH (10:30)
[2022-03-04] MEDS: Lactulose Oral Soln 20 GM/30 ML UDC PO SCH (10:30)
[2022-03-04] MEDS: Artificial Tears SOLN 15 ML BOTTLE BOTH EYES SCH ×2 (10:31→14:46)
[2022-03-04] MEDS: Dorzolamide/Timolol OPTH 10 ML BOTTLE BOTH EYES SCH ×2 (10:31→14:46)
[2022-03-04] MEDS: polyethylene glycoL 3350 17 GM POWD.PACK PO SCH (10:32)
[2022-03-04] MEDS: FLUOCINOLONE ACETONIDE 0.01% TP SCH (10:32)
[2022-03-04 11:33] VITALS: BP 137/88; PULSE 92; TEMP 98; O2SAT 95
[2022-03-04] MEDS: levETIRAcetam 250 MG in 0.9 % Sodium Chloride 100 ML IVPB SCH (11:45)
[2022-03-04] MEDS ORDERED: cefTRIAXone 1,000 MG in 0.9 % Sodium Chloride 10 ML IVP ONE (12:00)
== END 2022-03-04 15:29 | disposition home or self-care (01) | DRG 720 ==
LOC: 2ANU 08:44 → EMEROOARM 08:44 → SUATTDRO 11:18 → 2ANU 13:06 → SUATTDRO 03-02 14:34 → 2ANU 03-03 13:58
PROVIDERS: ADMIT Internal Medicine; ATTEND Internal Medicine